=== PATIENT | female | born 1930 | race Caucasian/White ===

== ENCOUNTER 2018-02-13 22:17 | Emergency (ER) | payer MEDICARE, OTHER ==
[~2018-02-13] VITALS: Ht 152.4 cm; Wt 54.4 kg
[~2018-02-13 22:17] MED LIST: ACET650T10 PO; LORA0.5T PO; Levothyroxine Sodium PO; MAG355OR18 PO; MAGN400O6 PO; MEMA10TA PO; MIRT15TA PO; MIRT15TA7 PO; QUET25TA PO; SIMV10TA6 PO; VALP250C PO
[2018-02-13] MEDS ORDERED: LEVO50TA8 PO (22:37)
[2018-02-13] MEDS ORDERED: DIVA-76 PO (22:37)
[2018-02-13] MEDS ORDERED: TYLENOL-CODEINE PO (22:37)
[2018-02-13 23:11] LABS: BASOPHILS % (AUTO) 0.4 % (0.0-2.0); EOSINOPHILS % (AUTO) 0.3 % (0.0-7.0); HEMATOCRIT 37.9 % (31.2-41.9); HEMOGLOBIN 12.9 g/dL (10.9-14.3); LYMPHOCYTES # (AUTO) 1.5 K/uL (20.0-40.0); LYMPHOCYTES % (AUTO) 16.1 % (20.5-51.5); MEAN CORPUSCULAR HEMOGLOBIN 30.5 uug (24.7-32.8); MEAN CORPUSCULAR HGB CONC 34 g/dL (32.3-35.6); MEAN CORPUSCULAR VOLUME 89.3 fL (75.5-95.3); MONOCYTES # (AUTO) 0.8 K/uL (2.0-10.0); MONOCYTES % (AUTO) 8.3 % (0.0-11.0); NEUTROPHILS # (AUTO) 7.1 K/uL (1.8-8.9); NEUTROPHILS % (AUTO) 74.9 % (38.5-71.5); PLATELET COUNT (AUTO) 176 K/uL (179-408); RED BLOOD CELL COUNT(AUTO) 4.24 MIL/uL (3.63-4.92); WHITE BLOOD COUNT (AUTO) 9.4 K/uL (3.8-11.8)
[2018-02-13 23:16] LABS: CARBON DIOXIDE 30 mmol/L (21-32); CHLORIDE 104 mmol/L (98-107); CREATININE 1.1 mg/dL (0.6-1.3); GLUCOSE 132 mg/dL (74-106); POTASSIUM 3.2 mmol/L (3.5-5.1); UREA NITROGEN, BLOOD 13 mg/dL (7-18)
[2018-02-13] MEDS ORDERED: POTASSIUM CHLORIDE 10 MEQ TAB.PRT.SR ONE (23:48)
[2018-02-13] MEDS: POTASSIUM CHLORIDE 10 MEQ TAB.PRT.SR PO ONE (23:53)
[2018-02-14] MEDS ORDERED: POTASSIUM CHLORIDE 10 MEQ TAB.PRT.SR ONE (00:08)
[2018-02-14 01:28] VITALS: BP 113/63
== END 2018-02-14 01:20 | disposition home or self-care (01) ==
LOC: ER 22:19
DX: M25.512 Pain in left shoulder (principal); E87.6 Hypokalemia; D69.6 Thrombocytopenia, unspecified; E03.9 Hypothyroidism, unspecified; E78.5 Hyperlipidemia, unspecified; I63.8 Other cerebral infarction; F03.90 Unspecified dementia, unspecified severity, without behavioral disturbance, psychotic disturbance, mood disturbance, and anxiety; W19.XXXA Unspecified fall, initial encounter; Y93.89 Activity, other specified; Y92.89 Other specified places as the place of occurrence of the external cause; Y99.8 Other external cause status; Z79.899 Other long term (current) drug therapy
CPT/HCPCS: 36415; 70450; 72125; 73030; 83735; 85025; 85730; A4663

== ENCOUNTER 2018-12-04 21:38 | Inpatient (IN) | payer MEDICARE, MEDICAID ==
[~2018-12-04] VITALS: Ht 152.4 cm; Wt 49.0 kg
[~2018-12-04 21:38] MED LIST changes: -ACET650T10 PO; +DIVA-76 PO; +LEVO50TA8 PO; -Levothyroxine Sodium PO; -MIRT15TA7 PO; +TYLENOL-CODEINE PO; -VALP250C PO
--- NOTE | 2018-12-04 22:35 | NUR ---
pt alert. disoriented but mentation normal for pt. swelling, redness and abrasion noted r side of forehead. pt denies pain now/ labs sent including urine sample. forehead abrasion cleaned
[2018-12-04 22:44] LABS: BASOPHILS # (AUTO) 0.1 K/uL (0.0-8.0); BASOPHILS % (AUTO) 0.9 % (0.0-2.0); EOSINOPHILS # (AUTO) 0.1 K/uL (0.0-0.7); EOSINOPHILS % (AUTO) 1.8 % (0.0-7.0); HEMATOCRIT 42.2 % (31.2-41.9); HEMOGLOBIN 14.3 g/dL (10.9-14.3); LYMPHOCYTES # (AUTO) 1.7 K/uL (20.0-40.0); LYMPHOCYTES % (AUTO) 23.3 % (20.5-51.5); MEAN CORPUSCULAR HEMOGLOBIN 30.4 uug (24.7-32.8); MEAN CORPUSCULAR HGB CONC 34 g/dL (32.3-35.6); MEAN CORPUSCULAR VOLUME 89.4 fL (75.5-95.3); MONOCYTES # (AUTO) 0.5 K/uL (2.0-10.0); NEUTROPHILS # (AUTO) 4.9 K/uL (1.8-8.9); PLATELET COUNT (AUTO) 228 K/uL (179-408); RED BLOOD CELL COUNT(AUTO) 4.72 MIL/uL (3.63-4.92); WHITE BLOOD COUNT (AUTO) 7.3 K/uL (3.8-11.8)
[2018-12-04 22:47] LABS: *BILIRUBIN,URIN NEGATIVE (NEGATIVE); *CLARITY,URINE CLEAR (CLEAR); *COLOR,URINE LIGHT YELLOW (YELLOW); *KETONES,URINE NEGATIVE (NEGATIVE); *UROBILINOGEN,URINE 0.2 E.U./dl (NORMAL); LEUKOCYTE ESTERASE ,URINE TRACE (NEGATIVE); NITRITE, URINE NEGATIVE (NEGATIVE); PH,URINE 7.5 (5.0-8.0); UGLUCOSE NEGATIVE (NEGATIVE)
[2018-12-04 22:54] LABS: *BLOOD, URINE TRACE (NEGATIVE)
[2018-12-04 22:59] LABS: ALANINE AMINOTRANSFERASE 11 U/L (14-59); ALKALINE PHOSPHATASE 78 U/L (50-136); ASPARTATE AMINOTRANSFERASE 12 U/L (15-37); BILIRUBIN,DIRECT 0.2 mg/dL (0.0-0.2); BILIRUBIN,TOTAL 0.3 mg/dL (0.2-1.0); CARBON DIOXIDE 30 mmol/L (21-32); CHLORIDE 102 mmol/L (98-107); CREATININE 0.9 mg/dL (0.6-1.3); GLUCOSE 127 mg/dL (74-106); POTASSIUM 3.7 mmol/L (3.5-5.1); TOTAL PROTEIN, SERUM 8.8 g/dL (6.4-8.2); UREA NITROGEN, BLOOD 9 mg/dL (7-18)
[2018-12-04 23:00] LABS: *AMPHETAMINE, URINE NEGATIVE (NEGATIVE); *BARBITURATE, URINE NEGATIVE (NEGATIVE); *CANNABINOID, URINE NEGATIVE (NEGATIVE); *COCCAINE, URINE NEGATIVE (NEGATIVE); *OPIATE, URINE NEGATIVE (NEGATIVE); *PHENCYCLIDINE SCREEN,URINE NEGATIVE (NEGATIVE); BACTERIA,URINE NONE SEEN /HPF (NONE SEEN); RBC,URINE 0-3 /HPF (0-3); SQUAMOUS EPITHELIAL CELL,UR FEW /HPF (NONE SEEN)
[2018-12-04 23:02] LABS: ETHANOL < 3 MG/DL (0-0)
[2018-12-04 23:10] LABS: THYROID STIMULATING HORMONE 2.745 mIU/mL (0.358-3.740)
[2018-12-04 23:13] LABS: ACETAMINOPHEN < 2.0 ug/mL (10-30)
[2018-12-04] MEDS ORDERED: CEFTRIAXONE 1 G in IV DEXTROSE 5% 50 ML IV ONE (23:15)
[2018-12-04] MEDS ORDERED: IV NORMAL SALINE 1000 ML BAG IV ONE (23:15)
[2018-12-04] MEDS ORDERED: AZITHROMYCIN IV 500 MG in IV DEXTROSE 5% 250 ML IV ONE (23:15)
[2018-12-04] MEDS ORDERED: AZITHROMYCIN 500 MG VIAL IV ONE (23:46)
[2018-12-04] MEDS ORDERED: CEFTRIAXONE 1 G VIAL ONE (23:46)
--- NOTE | 2018-12-04 23:54 | NUR ---
Dr. Mayo speaking with Dr. Lavern Peterson of [facility].
--- NOTE | 2018-12-05 01:16 | NUR ---
pt input 2200 iv and output 1500
--- NOTE | 2018-12-05 02:00 | NUR ---
PATIENT WAS BROUGHT IN FROM ED, ALERT, ORIENTED TO PERSON AND PACE ONLY, CONFUSED, AGITATED, NOTED PERSEVERANCES AND POOR SHORT TERM MEMORY. PATIENT IS NOT COOPERATIVE AND LEAVES THE BED WITHOUT ASSISTANCE. DR DALI ANGELES WAS NOTIFIED, ORDERED 1MG ATIVAN PUSH ONCE. MEDICATION GIVEN, PATIENT FELL ASLEEP 20 MIN LATER. BED IN LOW POSITION, CALL LIGHT IS WITHIN REACH. PATIENT IS NOT IN DISTRESS.
[2018-12-05] MEDS ORDERED: LORAZEPAM 2 MG/1 ML VIAL IV PRN (03:30)
[2018-12-05] MEDS ORDERED: MAGNESIUM HYDROXIDE 30 ML LIQUID UDC PO PRN (03:30)
[2018-12-05] MEDS ORDERED: MAG HYDROX/AL HYDROX/SIMETH 30 ML LIQUID UDC PO PRN (03:30)
[2018-12-05 04:25] VITALS: BP 113/68
--- NOTE | 2018-12-05 06:23 | NUR ---
PATIENT IS SLEEPING, NO RESPIRATORY DISTRESS, NO SOB, NO COUGH, SATURATION IS ABOVE 96% ON ROOM AIR. PATIENT HAS NO S&S OF PAIN. COMFORT AND SAFETY PROVIDED.
[2018-12-05 06:31] LABS: BASOPHILS % (AUTO) 0.6 % (0.0-2.0); EOSINOPHILS # (AUTO) 0.1 K/uL (0.0-0.7); EOSINOPHILS % (AUTO) 1.7 % (0.0-7.0); HEMATOCRIT 37.8 % (31.2-41.9); HEMOGLOBIN 12.7 g/dL (10.9-14.3); LYMPHOCYTES # (AUTO) 1.6 K/uL (20.0-40.0); LYMPHOCYTES % (AUTO) 27.5 % (20.5-51.5); MEAN CORPUSCULAR HGB CONC 34 g/dL (32.3-35.6); MEAN CORPUSCULAR VOLUME 89.7 fL (75.5-95.3); MONOCYTES # (AUTO) 0.6 K/uL (2.0-10.0); MONOCYTES % (AUTO) 10.5 % (0.0-11.0); NEUTROPHILS # (AUTO) 3.4 K/uL (1.8-8.9); NEUTROPHILS % (AUTO) 59.7 % (38.5-71.5); PLATELET COUNT (AUTO) 221 K/uL (179-408); RED BLOOD CELL COUNT(AUTO) 4.22 MIL/uL (3.63-4.92); WHITE BLOOD COUNT (AUTO) 5.7 K/uL (3.8-11.8)
[2018-12-05 06:40] LABS: CARBON DIOXIDE 29 mmol/L (21-32); CHLORIDE 110 mmol/L (98-107); CREATININE 0.7 mg/dL (0.6-1.3); GLUCOSE 80 mg/dL (74-106); POTASSIUM 3.7 mmol/L (3.5-5.1); UREA NITROGEN, BLOOD 6 mg/dL (7-18)
--- NOTE | 2018-12-05 07:49 | NUR ---
PATIENT WITH 1:1 SITTER. PATIENT IS SLEEPING, NO S/S OF ACUTE DISTRESS NOTED AT THIS TIME , NO SOB NOTED AND NO S/S OF PAIN AT THIS TIME. PATIENT IN ROOM AIR. PROVIDE COMFORT AND SAFETY . WILL CONTINUE PLAN OF CARE.
[2018-12-05] MEDS: QUETIAPINE FUMARATE 25 MG TABLET PO SCH ×2 (08:11→12:27)
[2018-12-05] MEDS: LEVOTHYROXINE SODIUM 50 MCG TABLET PO SCH (08:11)
[2018-12-05] MEDS: DIVALPROEX 250 MG TABLET.DR PO SCH ×2 (08:12→13:16)
[2018-12-05] MEDS: MEMANTINE HCL 5 MG TABLET PO SCH ×2 (08:12→17:19)
[2018-12-05] MEDS ORDERED: DIVALPROEX 250 MG TABLET.DR PO SCH (09:00)
[2018-12-05] MEDS ORDERED: MEMANTINE HCL 10 MG TABLET PO SCH (09:00)
[2018-12-05] MEDS ORDERED: LEVOTHYROXINE SODIUM 50 MCG TABLET PO SCH (09:00)
[2018-12-05] MEDS ORDERED: QUETIAPINE FUMARATE 25 MG TABLET PO SCH (09:00)
[2018-12-05] MEDS: Z GUARD REMEDY PASTE 57 GM TUBE TOP SCH ×2 (09:19→20:54)
--- NOTE | 2018-12-05 09:40 | NUR ---
PATIENT SEEN AND EVALUATED BY PHYSICAL THERAPIST AND WALK WITH PATIENT WITH WALKER WITH NO COMPLICATIONS AND ABLE TO FOLLOW DIRECTIONS
[2018-12-05 11:00] VITALS: BP 104/53
[2018-12-05] MEDS: IV NS 1000 ML 1,000 ML IV PRN (14:25)
[2018-12-05 16:00] VITALS: BP 113/52
[2018-12-05] MEDS ORDERED: SIMVASTATIN 10 MG TABLET PO SCH (18:00)
--- NOTE | 2018-12-05 18:15 | NUR ---
PATIENT LAYING IN BED IN SITTING WATCHING TV, CONTINUE 1:1 FOR SAFETY. PATIENT ATE DINNER 30%, PATIENT ASK FOR PUDDING , CRACKERS AND JUICE AND CONSUMED IT. NO C/O PAIN , NO SOB NOTED, WILL CONTINUE PLAN OF CARE WITH TRAFFIC WORKER.
--- NOTE | 2018-12-05 19:00 | NUR ---
PATIENT ASLEEP BUT EASILY AROUSABLE, NO SOB NO CHEST PAIN, CONT ON 1;1 SITTER FOR SAFETY, PATIENT TRIES TO CLIMB OUT OF BED, RISK FOR FALL AND INJURY. NO COMPLAIN OF PAIN AT THIS TIME. CONT TO MONITOR.
[2018-12-05 19:18] VITALS: BP 120/55
[2018-12-05] MEDS: SIMVASTATIN 10 MG TABLET PO SCH (20:47)
[2018-12-05] MEDS: MIRTAZAPINE 15 MG TABLET PO SCH (20:47)
[2018-12-05] MEDS ORDERED: MIRTAZAPINE 15 MG TABLET PO SCH (21:00)
[2018-12-06 04:43] VITALS: BP 158/76
[2018-12-06] MEDS: LEVOTHYROXINE SODIUM 50 MCG TABLET PO SCH (06:30)
[2018-12-06] MEDS: IV NS 1000 ML 1,000 ML IV PRN ×2 (06:35→20:33)
--- NOTE | 2018-12-06 06:54 | NUR ---
PATIENT AWAKE , NO SOB NO CHEST PAIN NOTED. R HEAD BRUISES FADING AT THIS TIME. PATIENT HAS SLIGHT ELEVATED BP BUT ASYMPTOMATIC, WILL NOTIFY MD FOR ELEVATED BP. CONT ON 1;1 SITTER FOR SAFETY. RISK FOR FALL AND INJURY. CONT TO MONITOR.
[2018-12-06 07:03] VITALS: BP 143/61
--- NOTE | 2018-12-06 08:15 | NUR ---
PATIENT IS AWAKE ALERT AND ORIENTED DENIES PAIN OR DISCOMFORTS AT THIS TIME REMAIN ON IVF ORDERED WITH NO S/S OF INFILTERATION ON SITE CALL LIGHTS AND PERSONAL BELONGINGS PLACED WITHIN EASY REACH MADE COMFORTABLE AND WILL CONTINUE TO OBSERVE PATIENT.
[2018-12-06] MEDS: MEMANTINE HCL 5 MG TABLET PO SCH ×2 (08:29→16:19)
[2018-12-06] MEDS: QUETIAPINE FUMARATE 25 MG TABLET PO SCH ×2 (08:29→11:50)
[2018-12-06] MEDS: DIVALPROEX 250 MG TABLET.DR PO SCH ×2 (08:29→12:14)
[2018-12-06] MEDS: Z GUARD REMEDY PASTE 57 GM TUBE TOP SCH ×2 (08:33→21:00)
[2018-12-06] MEDS ORDERED: LEVOFLOXACIN 500 MG TABLET PO SCH (10:30)
--- NOTE | 2018-12-06 10:50 | NUR ---
DR ARRIOLA HERE INFORMED HIM OF POOR VEIN ACCESS AND MULTIPLE ATTEMPTS STATED OKAY TO PUT A MIDLINE AT THIS TIME EATING DISORDER SPECIALIST NOTIFIED.
[2018-12-06 11:00] VITALS: BP 123/60
--- NOTE | 2018-12-06 12:00 | NUR ---
MID LINE INSERTED RIGHT UPPER ARM WITH GAUGE 18 BY THE MID LINE RN PATIENT TOLERATED WELL.
--- NOTE | 2018-12-06 13:15 | NUR ---
DR BERMAN HERE TO SEE PATIENT WITH NO NEW ORDERS AT THIS TIME.PATIENTS JAMSHID MONGE AT THE BEDSIDE.
[2018-12-06 16:00] VITALS: BP 118/63
--- NOTE | 2018-12-06 16:37 | NUR ---
RESTING COMPLIANT WITH MEDICATIONS ALERT TO SELF WITH CONFUSSION APPETITE HAS BEEN FAIR NO S/S OF PAIN OR DISCOMFORTS AT THIS TIME MADE COMFORTABLE CONTINUES TO PROVIDE SAFE AND THERAPEUTIC ENVIRONMENT AT ALL TIMES.
--- NOTE | 2018-12-06 18:32 | NUR ---
NOTED EPISODES OF MORE CONFUSSION NEEDED FREQUENT REDIRECTION ASSISTED ONTO THE COMMODE VOIDED AND BACK TO BED MADE COMFORTABLE REMAIN ON ONE ON ONE SITTER FOR OBSERVATION.WILL CONTINUE TO OBSERVE.
[2018-12-06 19:27] VITALS: BP 121/64
--- NOTE | 2018-12-06 19:30 | NUR ---
RECEIVED PATIENT AWAKE AND ALERT IN BED WITH 1:1 SITTER. NO SIGNS OF ACUTE DISTRESS NOTED. NO COMPLAINTS OF PAIN OR SOB. IVF RUNNING IN THE MIDLINE ON THE [place]. COMMODE IS AT BEDSIDE. SAFETY MEASURES INITIATED. BED IS LOW AND LOCKED, CALL LIGHT IS WITHIN REACH. WILL CONTINUE TO MONITOR
[2018-12-06] MEDS: SIMVASTATIN 10 MG TABLET PO SCH (20:57)
[2018-12-06] MEDS: MIRTAZAPINE 15 MG TABLET PO SCH (20:57)
[2018-12-07 05:09] VITALS: BP 146/50
--- NOTE | 2018-12-07 06:02 | NUR ---
Patient slept well throughout shift. No attempts of trying to get out of bed, was able to ambulate with assist to commode. No signs of acute distress noted. No complaints of pain or SOB. Safety measures given.
[2018-12-07 06:06] LABS: BASOPHILS % (AUTO) 0.6 % (0.0-2.0); EOSINOPHILS # (AUTO) 0.1 K/uL (0.0-0.7); EOSINOPHILS % (AUTO) 1.7 % (0.0-7.0); HEMATOCRIT 33.8 % (31.2-41.9); HEMOGLOBIN 11.3 g/dL (10.9-14.3); LYMPHOCYTES # (AUTO) 1.6 K/uL (20.0-40.0); LYMPHOCYTES % (AUTO) 21.2 % (20.5-51.5); MEAN CORPUSCULAR HEMOGLOBIN 29.9 uug (24.7-32.8); MEAN CORPUSCULAR HGB CONC 34 g/dL (32.3-35.6); MEAN CORPUSCULAR VOLUME 89.3 fL (75.5-95.3); MONOCYTES # (AUTO) 0.7 K/uL (2.0-10.0); MONOCYTES % (AUTO) 9.8 % (0.0-11.0); NEUTROPHILS % (AUTO) 66.7 % (38.5-71.5); PLATELET COUNT (AUTO) 176 K/uL (179-408); RED BLOOD CELL COUNT(AUTO) 3.78 MIL/uL (3.63-4.92); WHITE BLOOD COUNT (AUTO) 7.5 K/uL (3.8-11.8)
[2018-12-07] MEDS: LEVOTHYROXINE SODIUM 50 MCG TABLET PO SCH (06:12)
[2018-12-07 06:21] LABS: CARBON DIOXIDE 30 mmol/L (21-32); CHLORIDE 111 mmol/L (98-107); CREATININE 0.8 mg/dL (0.6-1.3); GLUCOSE 87 mg/dL (74-106); PHOSPHOROUS 3.2 mg/dL (2.5-4.9); POTASSIUM 3.7 mmol/L (3.5-5.1); UREA NITROGEN, BLOOD 6 mg/dL (7-18)
--- NOTE | 2018-12-07 07:20 | NUR ---
AWAKE ALERT COMFORTABLE AT THIS TIME VERBALLY RESPONDED WHEN SPOKEN TO BUT IS FORGETFUL REORIENTATION IS ONGOING CONTINUES TO HAVE ONE ON ONE SITTER FOR SAFETY CALL LIGHTS AND PERSONAL BELONGINGS ARE ALL WITHIN EASY REACH MADE COMFORTABLE AND WILL CONTINUE TO OBSERVE AND PROVIDE SAFE AND THERAPEUTIC ENVIRONMENT AT ALL TIMES.
[2018-12-07] MEDS: DIVALPROEX 250 MG TABLET.DR PO SCH ×2 (08:23→12:08)
[2018-12-07] MEDS: QUETIAPINE FUMARATE 25 MG TABLET PO SCH ×2 (08:24→12:09)
[2018-12-07] MEDS: Z GUARD REMEDY PASTE 57 GM TUBE TOP SCH ×2 (08:24→20:28)
[2018-12-07] MEDS: MEMANTINE HCL 5 MG TABLET PO SCH ×2 (08:24→16:24)
[2018-12-07] MEDS: IV NS 1000 ML 1,000 ML IV PRN ×2 (09:29→21:00)
[2018-12-07] MEDS: LEVOFLOXACIN 250 MG TABLET PO SCH (09:32)
--- NOTE | 2018-12-07 10:46 | NUR ---
ASSISTED WITH THE COAL TRAM DRIVER ONTO THE BEDSIDE COMMODE BM NOTED AND DTB MADE COMFORTABLE NOT IN DISTRESS AT THIS TIME.
[2018-12-07 11:00] VITALS: BP 135/67
--- NOTE | 2018-12-07 13:00 | NUR ---
PATIENT SEEN BY DR ARRIOLA WITH NO NEW ORDERS AT THIS TIME.
--- NOTE | 2018-12-07 14:00 | NUR ---
SEEN BY THE PHYSICAL THERAPIST FOR AMBULATION WITH THE FRONT WHEEL WALKER WITH FAIR ENDURANCE AT THIS TIME.
[2018-12-07 16:00] VITALS: BP 132/67
--- NOTE | 2018-12-07 18:00 | NUR ---
SUN DOWNING MORE CONFUSED NEEDING FREQUENT REDIRECTION REMAIN WITH ONE ON ONE SITTER ORDERED SAFE ENVIRONMENT PROVIDED AT ALL TIMES.
--- NOTE | 2018-12-07 19:30 | NUR ---
PATIENT AWAKE, NO SOB NO CHEST PAIN NOTED, CONT ABX FOR PNA. PATIENT HAS NO COUGH, NO CONGESTION NOTED. R HEAD DISCOLORATION FADING AWAY. PATIENT TRIES TO GET UP WITHOUT ASKING FOR ASSISTANCE, RISK FOR FALL, CONT ON 1;1 SITTER FOR SAFETY. CONT TO MONITOR.
[2018-12-07 19:56] VITALS: BP 126/72
[2018-12-07] MEDS: SIMVASTATIN 10 MG TABLET PO SCH (20:27)
[2018-12-07] MEDS: MIRTAZAPINE 15 MG TABLET PO SCH (20:27)
[2018-12-08 05:09] VITALS: BP 137/69
[2018-12-08] MEDS: LEVOTHYROXINE SODIUM 50 MCG TABLET PO SCH (06:02)
--- NOTE | 2018-12-08 06:26 | NUR ---
PATIENT SLEPT APPROX 8 HRS, NO SOB NO CHEST PAIN, NO COUGHING NOTED. R UPPER ARM MIDLINE PATENT. ASSISTED WITH TOILETING, RISK FOR FALL DUE TO FORGETFULNESS IN ASKING FOR ASSISTANTCE. CONT ON 1;1 SITTER FOR SAFETY.
--- NOTE | 2018-12-08 07:37 | NUR ---
PATIENT RECEIVED AWAKE ALERT AND COOPERATIVE WITH ONE ON ONE SITTER FOR SAFETY REMAIN ON IVF ORDERED WITH NO S/S OF INFILTERATION WITH MID LINE INTACT TO HER RIGHT ARM.SAFE AND THERAPEUTIC ENVIRONMENT PROVIDED AT ALL TIMES AND WILL CONTINUE TO OBSERVE.
[2018-12-08 07:45] VITALS: BP 143/55
[2018-12-08] MEDS ORDERED: LEVO500T2 PO (08:07)
[2018-12-08] MEDS: MEMANTINE HCL 5 MG TABLET PO SCH (08:27)
[2018-12-08] MEDS: QUETIAPINE FUMARATE 25 MG TABLET PO SCH ×2 (08:27→11:10)
[2018-12-08] MEDS: DIVALPROEX 250 MG TABLET.DR PO SCH ×2 (08:27→12:13)
[2018-12-08] MEDS: Z GUARD REMEDY PASTE 57 GM TUBE TOP SCH (08:29)
--- NOTE | 2018-12-08 09:09 | NUR ---
DR CRONIN HERE TO SEE PATIENT WITH ORDERS TI DISCHARGE TO [facility] TODAY STATED WILL CONFIRM WITH THE PATIENTS SON FIRST.
[2018-12-08] MEDS: LEVOFLOXACIN 250 MG TABLET PO SCH (11:12)
[2018-12-08 11:33] VITALS: BP 132/51
--- NOTE | 2018-12-08 13:03 | NUR ---
PER THE PACKAGE DYE STAND LOADER TOOL ROOM GEAR MACHINE OPERATOR PATIENT WILL BE DISCHARGED TO [facility] PATIENT IS BEING PREPPED FOR DISCHARGE AT THIS TIME MID LINE REMOVED THE [facility] LOUVER DOOR ASSEMBLER WILL CALL TO PICK PATIENT UP BY THEIR PRIVATE CAR.
--- NOTE | 2018-12-08 15:00 | NUR ---
PATIENT DISCHARGED PICKED UP BY HER SON BY PRIVATE CAR IN SATISFACTORY CONDITION WITH DISCHARGE INSTRUCTIONS AND PATIENTS SON INSTRUCTED TO CALL FOR A FOLLOW UP APPOINTMENT WITH HER PRIMARY DOCTOR AND TO CONTINUE ON LEVAQUIN FOR [address] CRONIN DID NOT LEAVE A PRESCRIPTIONS BECAUSE ORIGINALLY PATIENT WAS SUPPOSED TO GO TO SNF AND DID NOT NEED A PRESCRIPTION.MARIPOSA PATIENTS SON WILL HAVE CEDARS CALL DR CRONIN TO CONFIRM THE ANTIBIOTICS BECAUSE HE DID NOT LEAVE A PRESCRIPTION FOR THE PATIENT AND HE EXPRESSED UNDERSTANDING.
== END 2018-12-08 15:00 | DRG 193 ==
LOC: ER 21:43 → MEDSURG3 12-05 00:29
PROVIDERS: ADMIT Internal Medicine Nephrology; ATTEND Internal Medicine Nephrology
DX: J15.9 Unspecified bacterial pneumonia (principal); G92 Toxic encephalopathy; F03.91 Unspecified dementia, unspecified severity, with behavioral disturbance; E87.0 Hyperosmolality and hypernatremia; Z90.710 Acquired absence of both cervix and uterus; Z79.890 Hormone replacement therapy; E03.9 Hypothyroidism, unspecified; Z91.018 Allergy to other foods; F39 Unspecified mood [affective] disorder; S00.83XA Contusion of other part of head, initial encounter; W19.XXXA Unspecified fall, initial encounter; Y92.098 Other place in other non-institutional residence as the place of occurrence of the external cause; Z79.899 Other long term (current) drug therapy; R53.81 Other malaise; I67.2 Cerebral atherosclerosis
CPT/HCPCS: 36415; 36569; 70030-TC; 70450; 71045; 72125; 80307; 83605; 83735; 84100; 84443; 85025; 85730; 87040; 87086; 93005; 97110; 97112; 97116; 97530; A4663; G0378; G0480; G0480-TC; J0456; J0696; J2060; J3490; J7030; J7060

== ENCOUNTER 2019-04-30 21:26 | Inpatient (IN) | payer MEDICARE, MEDICAID ==
[~2019-04-30] VITALS: Ht 167.6 cm; Wt 47.6 kg
[~2019-04-30 21:26] MED LIST changes: +LEVO500T2 PO; -LORA0.5T PO; -MAG355OR18 PO; -MAGN400O6 PO; -TYLENOL-CODEINE PO
[2019-04-30] MEDS ORDERED: LORA0.5T PO (21:35)
[2019-04-30] MEDS ORDERED: ACET1TAB23 PO (21:35)
[2019-04-30] MEDS ORDERED: QUET25TA PO (21:35)
[2019-04-30] MEDS ORDERED: MAG355OR18 PO (21:35)
[2019-04-30] MEDS ORDERED: MAGN400O6 PO (21:35)
--- NOTE | 2019-04-30 21:54 | NUR ---
patient down in CT
--- NOTE | 2019-04-30 22:10 | NUR ---
patient returned from ct
[2019-04-30 22:30] LABS: CARBON DIOXIDE 31 mmol/L (21-32); CHLORIDE 108 mmol/L (98-107); CREATININE 0.9 mg/dL (0.6-1.3); GLUCOSE 87 mg/dL (74-106); POTASSIUM 3.4 mmol/L (3.5-5.1); UREA NITROGEN, BLOOD 14 mg/dL (7-18)
[2019-04-30 22:33] LABS: BASOPHILS % (AUTO) 0.7 % (0.0-2.0); EOSINOPHILS # (AUTO) 0.1 K/uL (0.0-0.7); HEMOGLOBIN 12.4 g/dL (10.9-14.3); LYMPHOCYTES # (AUTO) 2.1 K/uL (20.0-40.0); LYMPHOCYTES % (AUTO) 37.7 % (20.5-51.5); MEAN CORPUSCULAR HEMOGLOBIN 30.8 uug (24.7-32.8); MEAN CORPUSCULAR HGB CONC 35 g/dL (32.3-35.6); MEAN CORPUSCULAR VOLUME 89.2 fL (75.5-95.3); MONOCYTES # (AUTO) 0.6 K/uL (2.0-10.0); MONOCYTES % (AUTO) 9.7 % (0.0-11.0); NEUTROPHILS # (AUTO) 2.8 K/uL (1.8-8.9); NEUTROPHILS % (AUTO) 49.9 % (38.5-71.5); PLATELET COUNT (AUTO) 170 K/uL (179-408); RED BLOOD CELL COUNT(AUTO) 4.04 MIL/uL (3.63-4.92); WHITE BLOOD COUNT (AUTO) 5.7 K/uL (3.8-11.8)
[2019-04-30 22:36] LABS: ALANINE AMINOTRANSFERASE 10 U/L (14-59); ALKALINE PHOSPHATASE 54 U/L (50-136); ASPARTATE AMINOTRANSFERASE 14 U/L (15-37); BILIRUBIN,DIRECT 0.1 mg/dL (0.0-0.2); BILIRUBIN,TOTAL 0.3 mg/dL (0.2-1.0)
--- NOTE | 2019-04-30 23:02 | NUR ---
called for telel bed, patient will be in room 310.
--- NOTE | 2019-04-30 23:20 | NUR ---
called [facility] for panel call
[2019-05-01] VITALS (7 sets, daily range): BP systolic 121–155; BP diastolic 48–64
[2019-05-01] MEDS ORDERED: ACETAMINOPHEN 325 MG TABLET PO PRN (00:30)
[2019-05-01] MEDS ORDERED: ONDANSETRON 4 MG/2 ML VIAL IV PRN (00:30)
--- NOTE | 2019-05-01 01:27 | NUR ---
patient transferred to tele floor via gurney by Philip FRENCH. SBAR report given to Eloisa
--- NOTE | 2019-05-01 01:45 | NUR ---
Received patient from ED via gurney accompanied by MANOLO Foster and son, Xander. Patient safely transferred to bed, not in acute distress. No complaints at the moment. Noted on room air and with IV access on the left AC, 20g to saline lock, patent and intact. Patient made comfortable in bed. Oriented to unit and use of call light to which patient verbalized understanding. Bed in low position, locked, side rails up x 2 for safety, call light within reach. Noise and light subdued. Will continue to monitor.
[2019-05-01] MEDS: ZOLPIDEM 5 MG TABLET PO PRN (03:10)
--- NOTE | 2019-05-01 06:15 | NUR ---
Patient slept well after ambien dose given. Patient alert and oriented x 2, forgetful, requires frequent reorientation. Patient able to ambulate to restroom with assist or with four wheel walker. Attended all needs. Ensured safety and comfort.
--- NOTE | 2019-05-01 08:00 | NUR ---
AWAKE ALERT AND VERBALLY RESPONSIVE, FORGETFUL AND NEEDS CONSTANT REDIRECTION DURING ADLS. NOTED FREQUENT URINATION UA/CS SENT. DENIES CHEST PAIN OR SOB, SR ON MONITOR.
[2019-05-01 09:18] LABS: *BILIRUBIN,URIN NEGATIVE (NEGATIVE); *BLOOD, URINE NEGATIVE (NEGATIVE); *CLARITY,URINE CLEAR (CLEAR); *COLOR,URINE YELLOW (YELLOW); *KETONES,URINE NEGATIVE (NEGATIVE); LEUKOCYTE ESTERASE ,URINE NEGATIVE (NEGATIVE); NITRITE, URINE NEGATIVE (NEGATIVE); PH,URINE 8.5 (5.0-8.0); UGLUCOSE NEGATIVE (NEGATIVE)
[2019-05-01 12:28] LABS: BASOPHILS # (AUTO) 0.1 K/uL (0.0-8.0); BASOPHILS % (AUTO) 1.1 % (0.0-2.0); EOSINOPHILS # (AUTO) 0.1 K/uL (0.0-0.7); EOSINOPHILS % (AUTO) 2.6 % (0.0-7.0); HEMATOCRIT 38.3 % (31.2-41.9); LYMPHOCYTES # (AUTO) 1.5 K/uL (20.0-40.0); LYMPHOCYTES % (AUTO) 30.7 % (20.5-51.5); MEAN CORPUSCULAR HEMOGLOBIN 30.8 uug (24.7-32.8); MEAN CORPUSCULAR HGB CONC 34 g/dL (32.3-35.6); MEAN CORPUSCULAR VOLUME 90.5 fL (75.5-95.3); MONOCYTES # (AUTO) 0.4 K/uL (2.0-10.0); NEUTROPHILS # (AUTO) 2.7 K/uL (1.8-8.9); NEUTROPHILS % (AUTO) 56.6 % (38.5-71.5); PLATELET COUNT (AUTO) 173 K/uL (179-408); RED BLOOD CELL COUNT(AUTO) 4.24 MIL/uL (3.63-4.92); WHITE BLOOD COUNT (AUTO) 4.8 K/uL (3.8-11.8)
--- NOTE | 2019-05-01 12:30 | NUR ---
SEEN BY CLARK NOTED LABS AND REVIEWED HOME MEDS. SEE NOTES
[2019-05-01 12:41] LABS: CARBON DIOXIDE 32 mmol/L (21-32); CHLORIDE 109 mmol/L (98-107); CREATININE 0.8 mg/dL (0.6-1.3); GLUCOSE 99 mg/dL (74-106); MAGNESIUM 2.4 mg/dL (1.8-2.4); PHOSPHOROUS 3.2 mg/dL (2.5-4.9); POTASSIUM 3.7 mmol/L (3.5-5.1); UREA NITROGEN, BLOOD 8 mg/dL (7-18)
[2019-05-01] MEDS: IV NS 1000 ML 1,000 ML IV PRN (13:28)
--- NOTE | 2019-05-01 15:00 | NUR ---
SEEN BY PHYSICAL THERAPY FOR EVAL, SEE NOTES.
[2019-05-01] MEDS: MEMANTINE HCL 5 MG TABLET PO SCH (16:47)
[2019-05-01] MEDS: DIVALPROEX 250 MG TABLET.DR PO SCH (16:47)
[2019-05-01] MEDS: QUETIAPINE FUMARATE 25 MG TABLET PO SCH (16:48)
[2019-05-01] MEDS ORDERED: MEMANTINE HCL 10 MG TABLET PO SCH (17:00)
--- NOTE | 2019-05-01 19:04 | NUR ---
PATIENT REMAINS WITH ON AND OFF CONFUSION AND GETTING OUT OF BED, HIGH RISK FOR FALL
--- NOTE | 2019-05-01 20:00 | NUR ---
received patient in bed, oriented to person and place. Pleasant in conversation, calm, cooperative with care. IV is intact and patent. Bed alarm is on for safety. Comfort and safety measures are in place. Normal sinus on heart monitor.
[2019-05-01] MEDS: MIRTAZAPINE 15 MG TABLET PO SCH (20:30)
[2019-05-01] MEDS: SIMVASTATIN 10 MG TABLET PO SCH (20:30)
[2019-05-02] MEDS: IV NS 1000 ML 1,000 ML IV PRN ×2 (02:13→15:50)
[2019-05-02] MEDS: ZOLPIDEM 5 MG TABLET PO PRN (02:18)
--- NOTE | 2019-05-02 02:20 | NUR ---
Patient is unable to stay asleep. Given Ambien. Remains fairly confused but cooperative with care. Does not make attempts to leave the bed. Bed alarm is on for safety.
--- NOTE | 2019-05-02 05:45 | NUR ---
patient slept well during the night, required Ambien to continue sleeping. Woke up in the morning, used a commode to urinate, 1 person assist. No issues or distress noted during the shift.
[2019-05-02 05:48] LABS: BASOPHILS % (AUTO) 0.9 % (0.0-2.0); EOSINOPHILS # (AUTO) 0.1 K/uL (0.0-0.7); EOSINOPHILS % (AUTO) 3.1 % (0.0-7.0); HEMATOCRIT 33.4 % (31.2-41.9); HEMOGLOBIN 11.4 g/dL (10.9-14.3); LYMPHOCYTES # (AUTO) 2.1 K/uL (20.0-40.0); LYMPHOCYTES % (AUTO) 45.5 % (20.5-51.5); MEAN CORPUSCULAR HEMOGLOBIN 30.6 uug (24.7-32.8); MEAN CORPUSCULAR HGB CONC 34 g/dL (32.3-35.6); MEAN CORPUSCULAR VOLUME 89.3 fL (75.5-95.3); MONOCYTES # (AUTO) 0.4 K/uL (2.0-10.0); MONOCYTES % (AUTO) 9.8 % (0.0-11.0); NEUTROPHILS # (AUTO) 1.9 K/uL (1.8-8.9); NEUTROPHILS % (AUTO) 40.7 % (38.5-71.5); PLATELET COUNT (AUTO) 95 K/uL (179-408); RED BLOOD CELL COUNT(AUTO) 3.74 MIL/uL (3.63-4.92); WHITE BLOOD COUNT (AUTO) 4.6 K/uL (3.8-11.8)
[2019-05-02 06:11] LABS: CARBON DIOXIDE 29 mmol/L (21-32); CHLORIDE 113 mmol/L (98-107); CHOLESTEROL 126 mg/dL (<200); CREATININE 0.7 mg/dL (0.6-1.3); GLUCOSE 75 mg/dL (74-106); HDL CHOLESTEROL 55 mg/dL (40-60); PHOSPHOROUS 3.4 mg/dL (2.5-4.9); POTASSIUM 3.3 mmol/L (3.5-5.1); TRIGLYCERIDES 49 MG/DL (30-150); UREA NITROGEN, BLOOD 4 mg/dL (7-18)
[2019-05-02 06:21] LABS: EOSINOPHILS % (MANUAL) 3 % (0-8); LYMPHOCYTES % (MANUAL) 50 % (20-40); MONOCYTES % (MANUAL) 5 % (2-10); NEUTROPHILS % (MANUAL) 42 % (42-75)
[2019-05-02] MEDS: LEVOTHYROXINE SODIUM 50 MCG TABLET PO SCH (06:27)
[2019-05-02] MEDS: MEMANTINE HCL 5 MG TABLET PO SCH ×2 (07:59→17:13)
[2019-05-02] MEDS: QUETIAPINE FUMARATE 25 MG TABLET PO SCH ×3 (07:59→17:13)
[2019-05-02] MEDS: DIVALPROEX 250 MG TABLET.DR PO SCH ×2 (07:59→17:13)
--- NOTE | 2019-05-02 08:00 | NUR ---
AWAKE ALERT AND ABLE TO FOLLOW COMMANDS IN SPITE OF FORGETFULNESS/CONFUSION. NEEDS ATTENDED AND CLOSELY MONITORED. FREQUENT ROUNDING DUE TO HIGH RISK FOR FALL.
[2019-05-02 11:05] VITALS: BP 117/54
--- NOTE | 2019-05-02 11:56 | NUR ---
SEEN BY INSIDE SALES ACCOUNT EXECUTIVE SPOKE WITH SON AND DISCUSSED DC PLANNING HOME/ARU. SEE NOTES
[2019-05-02] MEDS ORDERED: POTASSIUM CHLORIDE 20 MEQ TAB.PRT.SR PO ONE (12:30)
[2019-05-02 15:56] VITALS: BP 115/63
--- NOTE | 2019-05-02 19:30 | NUR ---
Received patient resting in bed. No signs of acute distress noted. Patient is alert, but confused and forgetful. IVF running on the right upper arm. Vitals WNL. Safety measures initiated. Bed is low and locked, call light within reach. Will continue to monitor.
[2019-05-02 19:55] VITALS: BP 127/57
[2019-05-02] MEDS: SIMVASTATIN 10 MG TABLET PO SCH (20:12)
[2019-05-02] MEDS: MIRTAZAPINE 15 MG TABLET PO SCH (20:12)
--- NOTE | 2019-05-02 23:34 | NUR ---
Report given to MANOLO Garcia for continuity of care.
[2019-05-03] MEDS: IV NS 1000 ML 1,000 ML IV PRN (05:32)
[2019-05-03] MEDS: LEVOTHYROXINE SODIUM 50 MCG TABLET PO SCH (06:39)
[2019-05-03 07:07] LABS: BASOPHILS # (AUTO) 0.1 K/uL (0.0-8.0); EOSINOPHILS # (AUTO) 0.2 K/uL (0.0-0.7); LYMPHOCYTES # (AUTO) 2.1 K/uL (20.0-40.0); LYMPHOCYTES % (AUTO) 37.5 % (20.5-51.5); MEAN CORPUSCULAR HEMOGLOBIN 30.5 uug (24.7-32.8); MEAN CORPUSCULAR HGB CONC 34 g/dL (32.3-35.6); MONOCYTES # (AUTO) 0.5 K/uL (2.0-10.0); MONOCYTES % (AUTO) 8.2 % (0.0-11.0); NEUTROPHILS # (AUTO) 2.8 K/uL (1.8-8.9); NEUTROPHILS % (AUTO) 50.3 % (38.5-71.5); RED BLOOD CELL COUNT(AUTO) 4.34 MIL/uL (3.63-4.92); WHITE BLOOD COUNT (AUTO) 5.6 K/uL (3.8-11.8)
[2019-05-03 07:10] LABS: HEMATOCRIT 39.5 % (31.2-41.9); HEMOGLOBIN 13.2 g/dL (10.9-14.3); PLATELET COUNT (AUTO) 142 K/uL (179-408)
[2019-05-03 07:14] LABS: CARBON DIOXIDE 27 mmol/L (21-32); CHLORIDE 114 mmol/L (98-107); CREATININE 0.6 mg/dL (0.6-1.3); GLUCOSE 72 mg/dL (74-106); MAGNESIUM 2.1 mg/dL (1.8-2.4); POTASSIUM 3.6 mmol/L (3.5-5.1); UREA NITROGEN, BLOOD 2 mg/dL (7-18)
--- NOTE | 2019-05-03 07:20 | NUR ---
RECEIVED PATIENT AWAKE AND IN BED. PATIENT ALERT AND ORIENTED X2. NO DISTRESS NOTED. BED IN LOWEST POSITION, SIDE RAILS UP X2, CALL LIGHT WITHIN REACH, AND BED ALARM ON. WILL CONTINUE TO MONITOR.
--- NOTE | 2019-05-03 07:25 | NUR ---
patient slept well last night. No signs of acute distress noted. Patient is alert, but confused and forgetful. IVF running on the right upper arm. Vitals WNL. Safety measures initiated. Bed is low and locked, call light within reach. Will continue to monitor.
[2019-05-03] MEDS: DIVALPROEX 250 MG TABLET.DR PO SCH ×2 (08:17→17:11)
[2019-05-03] MEDS: MEMANTINE HCL 5 MG TABLET PO SCH ×2 (08:17→17:11)
[2019-05-03] MEDS: QUETIAPINE FUMARATE 25 MG TABLET PO SCH ×3 (08:17→17:12)
[2019-05-03 08:18] VITALS: BP 152/65
--- NOTE | 2019-05-03 18:19 | NUR ---
Report given to ARU nurse. No distress noted. Reviewed D/C instructions with patient. Patient verbalizes understanding.
[2019-05-03] MEDS ORDERED: ZOLP5TAB8 PO (20:06)
== END 2019-05-03 18:50 | DRG 640 ==
LOC: ER 21:29 → TELE3 23:30
PROVIDERS: ADMIT Nurse Practitioner Acute Care; ATTEND Nurse Practitioner Acute Care
DX: E86.9 Volume depletion, unspecified (principal); G93.41 Metabolic encephalopathy; E44.1 Mild protein-calorie malnutrition; Z68.1 Body mass index [BMI] 19.9 or less, adult; I50.30 Unspecified diastolic (congestive) heart failure; E87.0 Hyperosmolality and hypernatremia; R55 Syncope and collapse; E03.9 Hypothyroidism, unspecified; E87.6 Hypokalemia; Z90.710 Acquired absence of both cervix and uterus; F03.90 Unspecified dementia, unspecified severity, without behavioral disturbance, psychotic disturbance, mood disturbance, and anxiety; I70.0 Atherosclerosis of aorta; M43.12 Spondylolisthesis, cervical region; M25.78 Osteophyte, vertebrae; M48.02 Spinal stenosis, cervical region; Z79.890 Hormone replacement therapy; S09.90XA Unspecified injury of head, initial encounter; Y92.091 Bathroom in other non-institutional residence as the place of occurrence of the external cause; W01.0XXA Fall on same level from slipping, tripping and stumbling without subsequent striking against object, initial encounter; Y93.01 Activity, walking, marching and hiking
CPT/HCPCS: 36415; 70030-TC; 70450; 71045; 72125; 83735; 84100; 84443; 85025; 85730; 87086; 93005; A4663; G0378; J3490; J7030

== ENCOUNTER 2019-05-03 19:06 | Inpatient (IN) | payer MEDICARE, MEDICAID ==
[~2019-05-03] VITALS: Ht 160 cm; Wt 47.6 kg
[~2019-05-03 19:06] MED LIST changes: +ACET1TAB23 PO; +LORA0.5T PO; +MAG355OR18 PO; +MAGN400O6 PO
[2019-05-03] MEDS ORDERED: ZOLP5TAB8 PO (20:06)
[2019-05-03] MEDS ORDERED: Z GUARD REMEDY PASTE 57 GM TUBE TOP PRN (20:15)
[2019-05-03 20:28] VITALS: BP 124/57
--- NOTE | 2019-05-04 04:07 | NUR ---
admitted from med-surg a 89 yr old female with an admitting diagnosis of hypernatremia/acute metabolic encepalopathy. AAOx1-2 with periods of confusion. Forgetful at times, but cooperative follow simple commands. VSS. No acute distress noted. Hx of depression, Hyperlipidemia,Dementia, Bladder Prolapse, Total Hysterectomy. Skin intact Denies any pain nor any discomfort. Dr Brown aware of patient's admission and was told to reconcile meds. He said ok. Patient able to ambulates with supervision to the BR, voiding well. Fall precaution maintained. Call ravi within reach. Bed alarm on. Siderails up for safety. Will monitor patient.
[2019-05-04 05:28] VITALS: BP 136/60
[2019-05-04 07:47] VITALS: BP 121/59
--- NOTE | 2019-05-04 10:00 | NUR ---
Patient awake, alert oriented x 1-2, confused, not in any form of distress, on room air. She denies any pain or discomfort at this time. Assisted with her needs promptly. Notified Dr. Merida regarding the need for medication reconciliation and MD said he will. Safety measures implemented. Call light and frequently used items placed within reach.
[2019-05-04] MEDS ORDERED: ACETAMINOPHEN/CODEINE 300-30 MG TABLET PO PRN (10:30)
[2019-05-04] MEDS ORDERED: MAG HYDROX/AL HYDROX/SIMETH 30 ML LIQUID UDC PO PRN (10:30)
[2019-05-04] MEDS ORDERED: MAGNESIUM HYDROXIDE 30 ML LIQUID UDC PO PRN (10:30)
[2019-05-04] MEDS ORDERED: LEVOFLOXACIN 500 MG TABLET PO PRN (10:30)
[2019-05-04] MEDS: QUETIAPINE FUMARATE 25 MG TABLET PO SCH ×2 (11:41→21:52)
[2019-05-04 16:12] VITALS: BP 116/77
[2019-05-04] MEDS: DIVALPROEX 250 MG TABLET.DR PO SCH (16:15)
[2019-05-04] MEDS: MEMANTINE HCL 5 MG TABLET PO SCH (16:16)
[2019-05-04] MEDS ORDERED: MEMANTINE HCL 10 MG TABLET PO SCH (17:00)
[2019-05-04 20:36] VITALS: BP 122/60
--- NOTE | 2019-05-04 21:00 | NUR ---
patient is sitting in the wheelchair and coloring the pictures. Sitter at bedside. Patient is confused, perseverations about number [phone], does not want to be in bed claiming: "it is not her bed". Cooperative with care and compliant with medication regimen, pleasant in conversation, mildly depressed. Given a full coloring book to occupy the time.
[2019-05-04] MEDS: MIRTAZAPINE 15 MG TABLET PO SCH (21:52)
[2019-05-04] MEDS: SIMVASTATIN 10 MG TABLET PO SCH (21:52)
--- NOTE | 2019-05-04 22:10 | NUR ---
patient continues to color the pictures, oriented to person only. Took her medicines. Will continue to monitor, sitter is at bedside.
--- NOTE | 2019-05-04 23:25 | NUR ---
Patient is drowsy, was put in bed, currently sleeping, sitter is at bedside.
[2019-05-05 05:00] VITALS: BP 138/52
--- NOTE | 2019-05-05 05:40 | NUR ---
Patient slept well during the shift, no acute distress noted.
[2019-05-05] MEDS: LEVOTHYROXINE SODIUM 50 MCG TABLET PO SCH (06:16)
--- NOTE | 2019-05-05 06:27 | NUR ---
patient woke up and asking to go to the bathroom. Ambulated safely with 2 person assist. Too AM med, continues to persevere about "appointment for her son at [phone]". Went back to bed.
--- NOTE | 2019-05-05 07:10 | NUR ---
Received patient in bed alert and oriented x 1-2. With 1:1 sitter at bedside. fall precaution continue with assist. No c/o pain at this time. No s/s acute distress noted. Call light and frequently used items within reach. Safety and comfort provide at all times. Will continue to monitor.
[2019-05-05 08:00] VITALS: BP 145/63
[2019-05-05] MEDS: QUETIAPINE FUMARATE 25 MG TABLET PO SCH ×3 (08:38→20:15)
[2019-05-05] MEDS: DIVALPROEX 250 MG TABLET.DR PO SCH ×2 (08:39→16:56)
[2019-05-05] MEDS: MEMANTINE HCL 5 MG TABLET PO SCH ×2 (08:39→16:56)
--- NOTE | 2019-05-05 18:29 | NUR ---
Patient in bed with HOB elevated and watching tv . Alert and oriented x 1-2. All due meds given as ordered and patient kept clean and dry at all times. No c/o pain at this time. No s/s acute distress noted. Call light and frequently used items within reach. Safety and comfort provide at all times. Will continue to monitor.
[2019-05-05] MEDS: LORAZEPAM 0.5 MG TABLET PO PRN (19:46)
--- NOTE | 2019-05-05 20:00 | NUR ---
patient is in bed, confused, agitated, wants to leave and go home, perseveres about "working at a [employer] for 7 years" and "going home to sleep in her bed at 7:30", oriented to person only, pleasant in conversation, denies pain. Attempted to redirect and preoccupy with snacks. Sitter is at bedside. Will give ativan.
[2019-05-05] MEDS: MIRTAZAPINE 15 MG TABLET PO SCH (20:15)
[2019-05-05] MEDS: SIMVASTATIN 10 MG TABLET PO SCH (20:15)
--- NOTE | 2019-05-05 20:30 | NUR ---
patient took Ativan and the rest of her meds. More calm now, drowsy, watching TV. Sitter at bedside.
[2019-05-05 20:35] VITALS: BP 140/68
--- NOTE | 2019-05-05 22:00 | NUR ---
Patient is asleep, no distress noted, breathing is regular. patient ate pudding and crackers, drank a soda.
[2019-05-06] MEDS: LEVOTHYROXINE SODIUM 50 MCG TABLET PO SCH (06:21)
[2019-05-06 06:34] VITALS: BP 126/60
[2019-05-06 07:44] VITALS: BP 126/61
[2019-05-06] MEDS: QUETIAPINE FUMARATE 25 MG TABLET PO SCH ×3 (08:47→20:43)
[2019-05-06] MEDS: MEMANTINE HCL 5 MG TABLET PO SCH ×2 (08:48→17:18)
[2019-05-06] MEDS: DIVALPROEX 250 MG TABLET.DR PO SCH ×2 (08:48→17:18)
[2019-05-06] MEDS: LORAZEPAM 0.5 MG TABLET PO PRN ×2 (10:55→18:33)
--- NOTE | 2019-05-06 14:38 | NUR ---
INDIVIDUALIZED OVERALL PLAN OF CARE
--- NOTE | 2019-05-06 16:42 | NUR ---
patient is confuse and forgetful, no changes noted, tolerated PT, OT, noted with episodes of agitation, constantly getting up from chair and leave, reoriented, assisted to toileting, offered snacks, not effective, prn Ativan administered, effective, stayed with patient for safety , patient is on Seroquel, no adverse reactions noted such as no dyskinesia, no excessive sedation noted. kept clean and dry, tolerated meals and meds well, all needs attended timely,
[2019-05-06 19:38] VITALS: BP 103/67
[2019-05-06] MEDS: SIMVASTATIN 10 MG TABLET PO SCH (20:43)
[2019-05-06] MEDS: MIRTAZAPINE 15 MG TABLET PO SCH (20:44)
[2019-05-07 05:37] VITALS: BP 104/57
--- NOTE | 2019-05-07 06:34 | NUR ---
Patient received sitting in wheelchair next to DRILL SHARPENER OPERATOR. AAO x1, forgetful and confused. No acute distress or SOB noted. On room air. No Complain of pain at this time. All due medication given and tolerated well. Physical assessment done. Safety measures observed. Fall precaution maintained. All needs attended promptly. Bed in low position, side rails up x2 for safety, brake and alarm on. Call light and personal belongings within reach. Continue to monitor and endorse t oncoming nurse accordingly.
[2019-05-07] MEDS: LEVOTHYROXINE SODIUM 50 MCG TABLET PO SCH (07:06)
[2019-05-07 08:10] VITALS: BP 121/51
[2019-05-07] MEDS: MEMANTINE HCL 5 MG TABLET PO SCH ×2 (09:54→17:52)
[2019-05-07] MEDS: DIVALPROEX 250 MG TABLET.DR PO SCH ×2 (09:54→17:52)
[2019-05-07] MEDS: QUETIAPINE FUMARATE 25 MG TABLET PO SCH ×3 (09:54→20:22)
--- NOTE | 2019-05-07 13:35 | NUR ---
INTERDISCIPLINARY TEAM CONFERENCE
[2019-05-07 16:00] VITALS: BP 117/52
[2019-05-07] MEDS: LORAZEPAM 0.5 MG TABLET PO PRN (17:52)
--- NOTE | 2019-05-07 19:30 | NUR ---
Received patient in bed awake A&Ox1, w/ confusion. No SOB noted, not in distress. Patient noted trying to get up and wants to go home. Reoriented and redirected patient. Safety measures observed. Call light within reach. Will continue to monitor
[2019-05-07] MEDS: SIMVASTATIN 10 MG TABLET PO SCH (20:22)
[2019-05-07] MEDS: MIRTAZAPINE 15 MG TABLET PO SCH (20:23)
[2019-05-07 20:35] VITALS: BP 139/69
[2019-05-08] MEDS: LORAZEPAM 0.5 MG TABLET PO PRN (03:27)
--- NOTE | 2019-05-08 03:30 | NUR ---
Patient woke up noted w/ episode of agitation and wants to go home, PRN Ativan given. Redirected and reoriented patient. Will continue to monitor
[2019-05-08 05:48] VITALS: BP 127/68
[2019-05-08] MEDS: LEVOTHYROXINE SODIUM 50 MCG TABLET PO SCH (06:34)
--- NOTE | 2019-05-08 06:41 | NUR ---
Patient slept intermittently. In no acute distress. No complaints of pain at this time. All due meds given. All needs attended. Will endorse accordingly
[2019-05-08 08:00] VITALS: BP 137/63
[2019-05-08] MEDS: QUETIAPINE FUMARATE 25 MG TABLET PO SCH ×2 (08:19→11:42)
[2019-05-08] MEDS: MEMANTINE HCL 5 MG TABLET PO SCH ×2 (08:19→16:03)
[2019-05-08] MEDS: DIVALPROEX 250 MG TABLET.DR PO SCH ×2 (08:19→16:02)
[2019-05-08 15:15] VITALS: BP 125/68
--- NOTE | 2019-05-08 16:03 | NUR ---
PATIENT DISCHARGED TO [facility]. D/C INSTRUCTIONS/PT TEACHINGS PROVIDED, PT FAMILY VERBALIZED UNDERSTANDING. FAMILY STATED 1700 MEDICATION DOSE TO BE GIVEN AT [facility] ONCE PATIENT. SON AT BEDSIDE, ELECTRICAL ENGINEER MEP/TRANSPORT TO [facility].
--- NOTE | 2019-05-08 16:40 | NUR ---
PATIENT'S SON SIGNED D/C PAPERS. COPY PROVIDED TO SON. SON/FAMILY VERBALIZED DC INSTRUCTIONS/TEACHINGS.
--- NOTE | 2019-05-08 16:45 | NUR ---
PATIENT LEFT THE UNIT VIA WHEELCHAIR, ACCOMPANIED BY FAMILY AND RESPIRATORY CARE FACULTY.
== END 2019-05-08 16:30 | disposition home health service (06) | DRG 71 ==
PROVIDERS: ADMIT Physical Medicine & Rehabilitation Pain Medicine; ATTEND Physical Medicine & Rehabilitation Pain Medicine
DX: G93.41 Metabolic encephalopathy (principal); E44.1 Mild protein-calorie malnutrition; E87.0 Hyperosmolality and hypernatremia; R53.1 Weakness; E03.9 Hypothyroidism, unspecified; Z90.710 Acquired absence of both cervix and uterus; E86.9 Volume depletion, unspecified; E87.6 Hypokalemia; R55 Syncope and collapse; F03.90 Unspecified dementia, unspecified severity, without behavioral disturbance, psychotic disturbance, mood disturbance, and anxiety; F32.9 Major depressive disorder, single episode, unspecified; Z91.81 History of falling; R53.81 Other malaise; Z91.018 Allergy to other foods; Z91.02 Food additives allergy status
CPT/HCPCS: A4663; J3490

== ENCOUNTER 2020-01-28 09:17 | Inpatient (IN) | payer MEDICARE, OTHER ==
[~2020-01-28] VITALS: Ht 157.5 cm; Wt 42.2 kg
[~2020-01-28 09:17] MED LIST changes: -LEVO500T2 PO; -SIMV10TA6 PO; +SIMV10TA98 PO
--- NOTE | 2020-01-28 09:50 | NUR ---
PATIENT WAS MSE BY DR BAHENA IN ROOM 03A.
[2020-01-28 10:31] LABS: *KETONES,URINE 2+ (NEGATIVE); LEUKOCYTE ESTERASE ,URINE NEGATIVE (NEGATIVE); NITRITE, URINE NEGATIVE (NEGATIVE); PH,URINE 6.5 (5.0-8.0); UGLUCOSE NEGATIVE (NEGATIVE)
[2020-01-28 10:32] LABS: BASOPHILS % (AUTO) 0.4 % (0.0-2.0); EOSINOPHILS % (AUTO) 0.1 % (0.0-7.0); HEMATOCRIT 38.8 % (31.2-41.9); HEMOGLOBIN 13.2 g/dL (10.9-14.3); LYMPHOCYTES # (AUTO) 1.3 K/uL (20.0-40.0); LYMPHOCYTES % (AUTO) 31.5 % (20.5-51.5); MEAN CORPUSCULAR HEMOGLOBIN 31.3 uug (24.7-32.8); MEAN CORPUSCULAR HGB CONC 34 g/dL (32.3-35.6); MEAN CORPUSCULAR VOLUME 91.8 fL (75.5-95.3); MONOCYTES # (AUTO) 0.5 K/uL (2.0-10.0); MONOCYTES % (AUTO) 12.3 % (0.0-11.0); NEUTROPHILS # (AUTO) 2.3 K/uL (1.8-8.9); NEUTROPHILS % (AUTO) 55.7 % (38.5-71.5); PLATELET COUNT (AUTO) 169 K/uL (179-408); RED BLOOD CELL COUNT(AUTO) 4.23 MIL/uL (3.63-4.92); WHITE BLOOD COUNT (AUTO) 4.1 K/uL (3.8-11.8)
[2020-01-28 10:37] LABS: *BLOOD, URINE TRACE (NEGATIVE)
[2020-01-28 10:39] LABS: *BILIRUBIN,URIN 1+ (NEGATIVE); *CLARITY,URINE HAZY (CLEAR); *COLOR,URINE DARK YELLOW (YELLOW)
[2020-01-28 10:43] LABS: BACTERIA,URINE NONE SEEN /HPF (NONE SEEN); MUCUS,URINE FEW /LPF (0-FEW); SQUAMOUS EPITHELIAL CELL,UR MODERATE /HPF (NONE SEEN)
[2020-01-28 10:44] LABS: ABG BASE EXCESS 5.1 mmol/L; ABG HCO3 28.9 mmol/L; ABG PCO2 39.4 mmHg (35.0-45.0); ABG PH 7.483 (7.350-7.450); ABG PO2 75.7 mmHg (75.0-100.0); ABG SITE RIGHT BRACHIAL; ABG TOTAL HEMOGLOBIN 12.7 G/dL (12.0-16.0); COHb 0.5 % (0.5-1.5); MetHb 0.3 % (0.0-1.5); O2Hb 94.9 % (94.0-97.0); VENT MODE room air
[2020-01-28] MEDS ORDERED: IV NORMAL SALINE 500 ML IV ONE (11:00)
[2020-01-28 11:02] LABS: BILIRUBIN,TOTAL 0.3 mg/dL (0.2-1.0); CREATININE 0.9 mg/dL (0.6-1.3); POTASSIUM 3.7 mmol/L (3.5-5.1); TOTAL PROTEIN, SERUM 7.2 g/dL (6.4-8.2)
[2020-01-28] MEDS ORDERED: LEVO50TA8 PO (11:35)
[2020-01-28] MEDS ORDERED: QUET25TA PO (11:35)
[2020-01-28] MEDS ORDERED: MIRT15TA7 PO (11:35)
[2020-01-28] MEDS ORDERED: LORA-258 PO (11:35)
[2020-01-28] MEDS ORDERED: SIMV10TA98 PO (11:35)
[2020-01-28] MEDS ORDERED: MEMA10TA PO (11:35)
[2020-01-28] MEDS ORDERED: DIVA-78 PO (11:35)
--- NOTE | 2020-01-28 11:35 | NUR ---
MEDICATIONS RECONCILED
[2020-01-28 11:52] LABS: THYROID STIMULATING HORMONE 1.366 mIU/mL (0.358-3.740)
--- NOTE | 2020-01-28 12:25 | NUR ---
Patient is resting comfortably in bed with eyes closed.
[2020-01-28] MEDS ORDERED: AZITHROMYCIN IV 500 MG in IV DEXTROSE 5% 250 ML IV ONE (12:30)
--- NOTE | 2020-01-28 12:34 | NUR ---
DR DALI ANGELES WAS CALLED LEFT MESSAGE WITH OFFICE WAITING FOR CALL BACK
[2020-01-28] MEDS ORDERED: AZITHROMYCIN 500MG/ D5W 250ML IVPB **ER PYXIS ONLY IV ONE (12:42)
--- NOTE | 2020-01-28 13:40 | NUR ---
DR MENDES CALLED BACK SPOKE WITH DR BAHENA ACCEPTED PATIENT FOR ADMISSION.
--- NOTE | 2020-01-28 16:37 | NUR ---
Patient admitted from ER around 330pm in stable condition via stretcher with 1 nurse. Not in distress. On oxygen via nasal cannula at 2 LPM. SPO2 96% during admission. DX: General weakness and Covid19 under telemetry. monitor tech applied to patient. skin intact. MD Turpin made aware. Medication list relayed. On mechanical soft diet. no signs /complaint of pain/discomfort noted. will continue monitor
[2020-01-28] MEDS ORDERED: ONDANSETRON 4 MG/2 ML VIAL IV PRN (16:45)
[2020-01-28] MEDS ORDERED: MAGNESIUM HYDROXIDE 30 ML LIQUID UDC PO PRN (16:45)
[2020-01-28] MEDS ORDERED: ACETAMINOPHEN 325 MG TABLET PO PRN (16:45)
[2020-01-28] MEDS ORDERED: ZOLPIDEM 5 MG TABLET PO PRN (16:45)
[2020-01-28] MEDS ORDERED: Z GUARD REMEDY PASTE 57 GM TUBE TOP PRN (16:45)
[2020-01-28] MEDS ORDERED: DIVALPROEX 500 MG TABLET.DR PO SCH (17:00)
[2020-01-28] MEDS ORDERED: LORAZEPAM 0.5 MG TABLET PO PRN (17:00)
[2020-01-28] MEDS: DIVALPROEX 250 MG TABLET.DR PO SCH (17:06)
[2020-01-28] MEDS: QUETIAPINE FUMARATE 25 MG TABLET PO SCH (17:06)
[2020-01-28 18:39] VITALS: BP 133/60
--- NOTE | 2020-01-28 20:00 | NUR ---
PATIENT RECEIVED INTO CARE, LAYING IN BED ASLEEP, RESTING COMFORTABLY. PT HAS NO S/S OF ACUTE DISTRESS OR DISCOMFORT NOTED/OBSERVED BY NURSE. ALL SAFETY, FALL, AND ISOLATION PRECAUTIONS ARE IN PLACE. CALL LIGHT AND PERSONAL ITEMS ARE WITHIN REACH AT ALL TIMES. WILL CONTINUE TO MONITOR AND ASSESS.
[2020-01-28 20:40] VITALS: BP 122/53
[2020-01-28] MEDS: SIMVASTATIN 10 MG TABLET PO SCH (21:34)
[2020-01-28] MEDS: MIRTAZAPINE 15 MG TABLET PO SCH (21:36)
[2020-01-28] MEDS: MEMANTINE HCL 10 MG TABLET PO SCH (21:36)
[2020-01-29 00:39] VITALS: BP 111/40
[2020-01-29 05:51] VITALS: BP 125/80
--- NOTE | 2020-01-29 06:00 | NUR ---
PATIENT SLEPT THROUGHOUT NIGHT WITH NO COMPLAINTS OF PAIN/DISCOMFORT VERBALIZED AND NO S/S OF ACUTE DISTRESS/DISCOMFORT NOTED/OBSERVED BY THIS NURSE. ALL PRESCRIBED MEDICATIONS PROVIDED ORDERED AND TOLERATED WELL, WITH NO ADVERSE SIDE EFFECTS VERBALIZED BY PATIENT OR NOTED/OBSERVED BY THIS NURSE. ALL SAFETY, FALL, AND ISOLATION PRECAUTIONS REMAIN IN PLACE. CALL LIGHT AND PERSONAL ITEMS REMAIN WITHIN REACH AT ALL TIMES.
[2020-01-29] MEDS ORDERED: LEVOTHYROXINE SODIUM 50 MCG TABLET PO SCH (07:00)
[2020-01-29 07:59] LABS: CREATININE 0.8 mg/dL (0.6-1.3); MAGNESIUM 2.5 mg/dL (1.8-2.4); PHOSPHOROUS 3.1 mg/dL (2.5-4.9); POTASSIUM 3.2 mmol/L (3.5-5.1)
[2020-01-29 08:00] VITALS: BP 112/76
--- NOTE | 2020-01-29 08:30 | NUR ---
Received pt in bed AOx2, on RA with no SOB or distress noted at this time. On tele SB. IV site LAC 20g H/L flushed and patent. Bed locked in lowest position withe siderails 2x up. Will continue to monitor
[2020-01-29] MEDS ORDERED: MAG HYDROX/AL HYDROX/SIMETH 30 ML LIQUID UDC PO PRN (09:00)
[2020-01-29] MEDS: QUETIAPINE FUMARATE 25 MG TABLET PO SCH ×2 (09:05→16:56)
[2020-01-29] MEDS: DIVALPROEX 250 MG TABLET.DR PO SCH ×2 (09:05→16:56)
[2020-01-29] MEDS: MEMANTINE HCL 10 MG TABLET PO SCH ×2 (09:05→20:36)
[2020-01-29 14:00] VITALS: BP 122/53
[2020-01-29] MEDS ORDERED: POTASSIUM CHLORIDE 20 MEQ POWDER PACKET PO ONE (17:00)
--- NOTE | 2020-01-29 17:45 | NUR ---
Patient stable throughout shift with no complaints or distress noted at this time. States that she's "good". Able to eat dinner and take crushed meds.
[2020-01-29 20:06] VITALS: BP 99/43
[2020-01-29] MEDS: ENOXAPARIN SODIUM 30 MG/0.3 ML DISP.SYRIN SUBCUT SCH (20:30)
[2020-01-29] MEDS: MIRTAZAPINE 15 MG TABLET PO SCH (20:36)
[2020-01-29] MEDS: SIMVASTATIN 10 MG TABLET PO SCH (20:36)
[2020-01-30 00:46] VITALS: BP 103/46
[2020-01-30 04:59] VITALS: BP 108/40
[2020-01-30 06:51] LABS: BASOPHILS % (AUTO) 0.4 % (0.0-2.0); EOSINOPHILS # (AUTO) 0.1 K/uL (0.0-0.7); EOSINOPHILS % (AUTO) 1.5 % (0.0-7.0); HEMATOCRIT 36.4 % (31.2-41.9); HEMOGLOBIN 12.3 g/dL (10.9-14.3); LYMPHOCYTES # (AUTO) 1.6 K/uL (20.0-40.0); LYMPHOCYTES % (AUTO) 37.4 % (20.5-51.5); MEAN CORPUSCULAR HEMOGLOBIN 31.1 uug (24.7-32.8); MEAN CORPUSCULAR HGB CONC 34 g/dL (32.3-35.6); MONOCYTES # (AUTO) 0.5 K/uL (2.0-10.0); MONOCYTES % (AUTO) 11.7 % (0.0-11.0); NEUTROPHILS # (AUTO) 2.1 K/uL (1.8-8.9); PLATELET COUNT (AUTO) 182 K/uL (179-408); RED BLOOD CELL COUNT(AUTO) 3.96 MIL/uL (3.63-4.92); WHITE BLOOD COUNT (AUTO) 4.2 K/uL (3.8-11.8)
--- NOTE | 2020-01-30 06:58 | NUR ---
END OF SHIFT REPORT Patient rested well in between care; no acute distress; took nourishment well with aspiration precaution; needs attended; safety maintained; continue to monitor; continue plan of care.
[2020-01-30 07:03] LABS: BILIRUBIN,TOTAL 0.2 mg/dL (0.2-1.0); CREATININE 1.2 mg/dL (0.6-1.3); MAGNESIUM 2.4 mg/dL (1.8-2.4); POTASSIUM 3.5 mmol/L (3.5-5.1)
[2020-01-30] MEDS: LEVOTHYROXINE SODIUM 50 MCG TABLET PO SCH (08:41)
[2020-01-30] MEDS: QUETIAPINE FUMARATE 25 MG TABLET PO SCH ×2 (08:41→16:34)
[2020-01-30] MEDS: MEMANTINE HCL 10 MG TABLET PO SCH ×2 (08:41→20:34)
[2020-01-30] MEDS: DIVALPROEX 250 MG TABLET.DR PO SCH ×2 (08:41→16:34)
[2020-01-30 12:06] VITALS: BP 121/51
--- NOTE | 2020-01-30 16:38 | NUR ---
Attempted to insert straight cath to obtain urine clean catch, unsuccessful. Will try again
[2020-01-30 16:40] VITALS: BP 146/56
--- NOTE | 2020-01-30 17:32 | NUR ---
Pt remained stable throughtout shift, AOx1. On RA with no SOB or distress noted at this time, saturating 97%. IV LAC 20g H/L in place, flushed and patent. Called son Xander and talked to pt. Bed locked in lowest position with siderails 2xup.
--- NOTE | 2020-01-30 19:30 | NUR ---
Received patient lying in bed. AAOX1 only. In no acute distress. No signs or symptoms of pain or SOB. O2 sat at 98% on RA. NSR on tele at 62/min. IV site on left AC intact and patent. Droplet and contact precaution observed. Safety measure initiated and call ravi within reached.
[2020-01-30 20:08] VITALS: BP 104/35
[2020-01-30] MEDS: SIMVASTATIN 10 MG TABLET PO SCH (20:33)
[2020-01-30] MEDS: MIRTAZAPINE 15 MG TABLET PO SCH (20:33)
[2020-01-30] MEDS: ENOXAPARIN SODIUM 30 MG/0.3 ML DISP.SYRIN SUBCUT SCH (20:33)
[2020-01-31 00:08] VITALS: BP 146/67
[2020-01-31 04:17] VITALS: BP 111/44
[2020-01-31 05:31] LABS: *BLOOD, URINE 3+ (NEGATIVE); *CLARITY,URINE CLOUDY (CLEAR); *COLOR,URINE AMBER (YELLOW); *KETONES,URINE 3+ (NEGATIVE); LEUKOCYTE ESTERASE ,URINE TRACE (NEGATIVE); NITRITE, URINE NEGATIVE (NEGATIVE); PH,URINE 6.5 (5.0-8.0); UGLUCOSE NEGATIVE (NEGATIVE)
[2020-01-31 05:50] LABS: *BILIRUBIN,URIN 1+ (NEGATIVE)
[2020-01-31 05:51] LABS: BACTERIA,URINE NONE SEEN /HPF (NONE SEEN); RBC,URINE TNTC /HPF (0-3)
[2020-01-31 05:52] LABS: SQUAMOUS EPITHELIAL CELL,UR FEW /HPF (NONE SEEN)
--- NOTE | 2020-01-31 06:00 | NUR ---
Patient slept well last night. In no acute distress. No signs or symptoms of pain or SOB. IV site on left AC remains intact and patent. Needs anticipated to and met. Droplet and contact precaution maintained. Safety measure maintained and call ravi within reached.
[2020-01-31 06:01] LABS: *CREATININE,URINE 248.2 mg/dL (30-125); *URINE TOTAL PROTEIN RANDOM 122.3 mg/dL (<150/24HR)
[2020-01-31 06:51] LABS: ALANINE AMINOTRANSFERASE < 6 U/L (14-59); ALKALINE PHOSPHATASE 58 U/L (50-136); ASPARTATE AMINOTRANSFERASE 15 U/L (15-37); BILIRUBIN,TOTAL 0.2 mg/dL (0.2-1.0); CARBON DIOXIDE 32 mmol/L (21-32); CHLORIDE 112 mmol/L (98-107); CREATINE KINASE, TOTAL 27 U/L (26-192); CREATININE 0.9 mg/dL (0.6-1.3); GLUCOSE 72 mg/dL (74-106); LACTATE DEHYDROGENASE 181 U/L (81-234); MAGNESIUM 2.6 mg/dL (1.8-2.4); PHOSPHOROUS 3.2 mg/dL (2.5-4.9); POTASSIUM 3.5 mmol/L (3.5-5.1); TOTAL PROTEIN, SERUM 6.4 g/dL (6.4-8.2); UREA NITROGEN, BLOOD 24 mg/dL (7-18)
[2020-01-31] MEDS: MEMANTINE HCL 10 MG TABLET PO SCH ×2 (08:44→20:36)
[2020-01-31] MEDS: DIVALPROEX 250 MG TABLET.DR PO SCH ×2 (08:45→20:35)
[2020-01-31] MEDS: LEVOTHYROXINE SODIUM 50 MCG TABLET PO SCH (08:45)
[2020-01-31] MEDS: QUETIAPINE FUMARATE 25 MG TABLET PO SCH (08:45)
--- NOTE | 2020-01-31 09:00 | NUR ---
PATIENT IS IN BED CONFUSED DISORIENTED ALL NEEDS ANTICIPATED AND SATISFIED. MAX ASSIST FOR ALL ADL TURNED AND REPOSITIONED Q2H TELE SR ON ROOM AIR WITH NO RESP DISTRESS AT THIS TIME MADE COMFORTABLE WILL CONTINUE TO OBSERVE.
--- NOTE | 2020-01-31 09:52 | NUR ---
DR JEFFRIES HERE TO SEE AND EXAMINE PATIENT WITH NO NEW ORDERS AT THIS AWARE THAT WE ARE STILL WAITING FOR PATIENTS CONSERVATOR TO RETURN CALL FOR CONSCENT FOR THE CTA Addendum: 01/31/20 at 1005 by ROCK RG RN ERROR IN CHARTING WRONG PATIENT
[2020-01-31 09:55] LABS: BASOPHILS % (AUTO) 1.1 % (0.0-2.0); EOSINOPHILS # (AUTO) 0.1 K/uL (0.0-0.7); EOSINOPHILS % (AUTO) 1.8 % (0.0-7.0); HEMATOCRIT 36.8 % (31.2-41.9); HEMOGLOBIN 12.5 g/dL (10.9-14.3); LYMPHOCYTES # (AUTO) 1.4 K/uL (20.0-40.0); LYMPHOCYTES % (AUTO) 32.1 % (20.5-51.5); MEAN CORPUSCULAR HEMOGLOBIN 31.2 uug (24.7-32.8); MEAN CORPUSCULAR HGB CONC 34 g/dL (32.3-35.6); MEAN CORPUSCULAR VOLUME 92.1 fL (75.5-95.3); MONOCYTES # (AUTO) 0.4 K/uL (2.0-10.0); MONOCYTES % (AUTO) 9.2 % (0.0-11.0); NEUTROPHILS # (AUTO) 2.5 K/uL (1.8-8.9); NEUTROPHILS % (AUTO) 55.8 % (38.5-71.5); PLATELET COUNT (AUTO) 199 K/uL (179-408); WHITE BLOOD COUNT (AUTO) 4.5 K/uL (3.8-11.8)
--- NOTE | 2020-01-31 10:00 | NUR ---
RECEIVED REPORT FROM THE LAB PATIENT HAS GRAM POSITIVE PLUS COCCI IN CLUSTERS IN THE AEROBIC BOTTLE DR JENNIFER ARRIOLA HERE AND AWARE WITH NO NEW ORDERS AT THIS TIME.
[2020-01-31 12:00] VITALS: BP 113/51
--- NOTE | 2020-01-31 12:48 | NUR ---
DR VELASQUEZ HERE SEEN PATIENT WITH NEW ORDERS AND NOTED
[2020-01-31 15:43] VITALS: BP 121/52
--- NOTE | 2020-01-31 18:00 | NUR ---
SPOON FED ATE 50 PERCENT ALL NEEDS ANTICIPATED AND SATISFIED TURNED AND REPOSITIONED NOT IN DISTRESS AT THIS TIME.
--- NOTE | 2020-01-31 19:30 | NUR ---
Received patient lying in bed. AAOX1 only. Calm and pleasantly confused. In no acute distress. No signs or symptoms of pain or SOB. NSR on tele at 82/min. IV site on left AC intact and patent. Droplet and contact precaution observed. Safety measure initiated and call ravi within reached.
[2020-01-31] MEDS: MIRTAZAPINE 15 MG TABLET PO SCH (20:36)
[2020-01-31] MEDS: ENOXAPARIN SODIUM 30 MG/0.3 ML DISP.SYRIN SUBCUT SCH (20:36)
[2020-01-31] MEDS: SIMVASTATIN 10 MG TABLET PO SCH (20:36)
[2020-01-31 22:00] VITALS: BP 116/46
[2020-02-01] VITALS: BP 139/49
--- NOTE | 2020-02-01 06:23 | NUR ---
Slept well last night. In no acute distress. No signs or symptoms of pain or SOB. Sinus destiny on tele at 57/min. IV site on left AC remains intact and patent. Droplet and contact precaution maintained. Safety measure maintained and call ravi within reached.
--- NOTE | 2020-02-01 07:01 | NUR ---
Noted IV was dislodged/pulled out. Started new IV on left wrist #22G.
--- NOTE | 2020-02-01 08:00 | NUR ---
PATIENT IS AWAKE ALERT TO SELF WITH CONFUSSION AND DISORIENTATION ALL NEEDS ANTICIPATED AND SATISFIED.REMAIN ON COVID 19 ISOLATION ORDERED.REPOSITIONED MADE COMFORTABLE ASSISTED WITH MEALS WITH FAIR APPETITE MADE COMFORTABLE WILL CONTINUE TO OBSERVE.
[2020-02-01] MEDS: MEMANTINE HCL 10 MG TABLET PO SCH ×2 (09:08→21:39)
[2020-02-01] MEDS: LEVOTHYROXINE SODIUM 50 MCG TABLET PO SCH (09:08)
[2020-02-01 09:18] VITALS: BP 125/53
--- NOTE | 2020-02-01 11:00 | NUR ---
DR JEFFRIES HERE TO SEE PATIENT WITH NEW ORDERS AND NOTED
--- NOTE | 2020-02-01 12:08 | NUR ---
DR CRONIN HERE TO SEE PATIENT REMINDED HIM THAT DR ARRIOLA WAS NOTIFIED YESTERDAY OF THE POSITIVE BLOOD CULTURE AND HE SAW PATIENT WITH NEW ORDERS AND NOTED.
[2020-02-01] MEDS: POTASSIUM CHLORIDE 10 MEQ in IV D5 1/2 NS 1000 ML 1,000 ML IV PRN (12:41)
--- NOTE | 2020-02-01 16:05 | NUR ---
ALERT TO SELF WITH CONFUSSION AND DISORIENTATION UNABLE TO MAKE NEEDS KNOWN ALL NEEDS ANTICIPATED AND SATISFIED MAX ASSIST FOR ALL ADL TURNED AND REPOSITIONED Q2H REMAIN ON IVF ORDERED WITH NO S/S OF INFILTERATION AT THIS TIME TURNED AND REPOSITIONED Q2H HEELS FLOATED MADE COMFORTABLE WILL CONTINUE TO OBSERVE.
--- NOTE | 2020-02-01 16:37 | NUR ---
CALL RECEIVED FROM DR HARVEY INQUIRES ON THE PATIENT WITH NO NEW ORDERS AT HIS TIME
[2020-02-01 18:10] VITALS: BP 122/56
[2020-02-01 20:00] VITALS: BP 127/52
[2020-02-01] MEDS ORDERED: QUETIAPINE FUMARATE 25 MG TABLET PO SCH (21:00)
[2020-02-01] MEDS ORDERED: VANCOMYCIN IV 500 MG in IV DEXTROSE 5% 100 ML IV SCH (21:00)
[2020-02-01] MEDS: ENOXAPARIN SODIUM 30 MG/0.3 ML DISP.SYRIN SUBCUT SCH (21:37)
[2020-02-01] MEDS: DIVALPROEX 250 MG TABLET.DR PO SCH (21:39)
[2020-02-01] MEDS: SIMVASTATIN 10 MG TABLET PO SCH (21:39)
[2020-02-01] MEDS: MIRTAZAPINE 15 MG TABLET PO SCH (21:39)
[2020-02-01] MEDS: QUETIAPINE FUMARATE 25 MG TABLET PO SCH (21:39)
[2020-02-02] VITALS: BP 122/58
[2020-02-02] MEDS: POTASSIUM CHLORIDE 10 MEQ in IV D5 1/2 NS 1000 ML 1,000 ML IV PRN ×2 (01:53→15:22)
[2020-02-02 04:00] VITALS: BP 137/48
--- NOTE | 2020-02-02 06:28 | NUR ---
Patient slept well. No SOB. O2 sat 98% on RA. SR on Tele monitor. IV on L wrist 22g intact and patent w/ IVF infusing. All needs attended. Will endorse accordingly
[2020-02-02 06:31] LABS: BASOPHILS % (AUTO) 0.3 % (0.0-2.0); EOSINOPHILS # (AUTO) 0.1 K/uL (0.0-0.7); EOSINOPHILS % (AUTO) 0.9 % (0.0-7.0); HEMATOCRIT 33.7 % (31.2-41.9); HEMOGLOBIN 11.5 g/dL (10.9-14.3); LYMPHOCYTES # (AUTO) 1.6 K/uL (20.0-40.0); LYMPHOCYTES % (AUTO) 25.8 % (20.5-51.5); MEAN CORPUSCULAR HEMOGLOBIN 31.4 uug (24.7-32.8); MEAN CORPUSCULAR HGB CONC 34 g/dL (32.3-35.6); MEAN CORPUSCULAR VOLUME 92.2 fL (75.5-95.3); MONOCYTES # (AUTO) 0.7 K/uL (2.0-10.0); MONOCYTES % (AUTO) 11.2 % (0.0-11.0); NEUTROPHILS # (AUTO) 3.8 K/uL (1.8-8.9); NEUTROPHILS % (AUTO) 61.8 % (38.5-71.5); PLATELET COUNT (AUTO) 200 K/uL (179-408); RED BLOOD CELL COUNT(AUTO) 3.66 MIL/uL (3.63-4.92); WHITE BLOOD COUNT (AUTO) 6.1 K/uL (3.8-11.8)
[2020-02-02 06:57] LABS: BILIRUBIN,TOTAL 0.2 mg/dL (0.2-1.0); CREATININE 0.8 mg/dL (0.6-1.3); MAGNESIUM 2.1 mg/dL (1.8-2.4); PHOSPHOROUS 2.2 mg/dL (2.5-4.9); POTASSIUM 3.5 mmol/L (3.5-5.1); TOTAL PROTEIN, SERUM 5.8 g/dL (6.4-8.2)
--- NOTE | 2020-02-02 07:54 | NUR ---
PATIENT IS ALERT TO SELF WITH CONFUSSION AND DISORIENTATION TURNED AND REPOSITIONED FOR COMFORT NO RESPIRATORY DISTRESS AFEBRILE REMAIN ON IVF ORDERED WITH NO S/S OF INFILTERATION AT THIS TIME MADE COMFORTABLE WILL CONTINUE TO OBSERVE.
[2020-02-02 08:22] VITALS: BP 119/48
[2020-02-02] MEDS: MEMANTINE HCL 10 MG TABLET PO SCH ×2 (08:25→20:29)
[2020-02-02] MEDS: QUETIAPINE FUMARATE 25 MG TABLET PO SCH ×2 (08:25→20:30)
[2020-02-02] MEDS: LEVOTHYROXINE SODIUM 50 MCG TABLET PO SCH (08:25)
--- NOTE | 2020-02-02 12:39 | NUR ---
DR ARRIOLA HERE SEEN PATIENT WITH NO NEW ORDERS AT THIS TIME
[2020-02-02 13:07] LABS: A/G RATIO 0.8 (0.7-1.7); ALBUMIN 2.6 g/dL (2.9-4.4); ALPHA-1-GLOBULIN 0.3 g/dL (0.0-0.4); ALPHA-2-GLOBULIN 0.8 g/dL (0.4-1.0); BETA GLOBULIN 1.1 g/dL (0.7-1.3); GAMMA GLOBULIN 1.2 g/dL (0.4-1.8); GLOBULIN, TOTAL 3.3 g/dL (2.2-3.9); M-SPIKE Not Observed g/dL (Not Observed)
[2020-02-02] MEDS ORDERED: NEUTRA PHOS PACKET PO ONE (15:30)
[2020-02-02 15:58] VITALS: BP 138/50
--- NOTE | 2020-02-02 17:30 | NUR ---
POTASSIUM REPLACEMENT GIVEN ORDERED NOT IN DISTRESS AT THIS TIME
--- NOTE | 2020-02-02 18:00 | NUR ---
AWAKE ALERT TO SELF MORE TALKATIVE TODAY MADE COMFORTABLE WILL CONTINUE TO OBSERVE.
[2020-02-02 20:00] VITALS: BP 129/58
[2020-02-02] MEDS: DIVALPROEX 250 MG TABLET.DR PO SCH (20:29)
[2020-02-02] MEDS: SIMVASTATIN 10 MG TABLET PO SCH (20:30)
[2020-02-02] MEDS: MIRTAZAPINE 15 MG TABLET PO SCH (20:30)
[2020-02-02] MEDS: ENOXAPARIN SODIUM 30 MG/0.3 ML DISP.SYRIN SUBCUT SCH (22:03)
[2020-02-03] VITALS: BP 117/45
[2020-02-03 04:00] VITALS: BP 114/46
[2020-02-03] MEDS: POTASSIUM CHLORIDE 10 MEQ in IV D5 1/2 NS 1000 ML 1,000 ML IV PRN ×2 (04:50→21:11)
--- NOTE | 2020-02-03 06:55 | NUR ---
END OF SHIFT REPORT PAtient rested well in between care; no acute distress; safety maintained; bed bath rendered; continue to monitor; continue plan of care.
[2020-02-03 07:26] LABS: CREATININE 0.8 mg/dL (0.6-1.3); PHOSPHOROUS 1.6 mg/dL (2.5-4.9); POTASSIUM 3.5 mmol/L (3.5-5.1)
[2020-02-03] MEDS: LEVOTHYROXINE SODIUM 50 MCG TABLET PO SCH (08:31)
[2020-02-03] MEDS: MEMANTINE HCL 10 MG TABLET PO SCH ×2 (08:31→21:04)
[2020-02-03] MEDS: QUETIAPINE FUMARATE 25 MG TABLET PO SCH ×2 (08:32→21:04)
[2020-02-03] MEDS ORDERED: POTASSIUM PHOSPHATE MM 7.5 MMOL in IV NORMAL SALINE 97.5 ML IV ONE (11:15)
[2020-02-03 16:00] VITALS: BP 119/56
--- NOTE | 2020-02-03 18:50 | NUR ---
PATIENTS CALM AND COMFORTABLE WITH NO SIGNS ; PATIENT MEDICATION COMPLIANT; PATIENT WITH STABLE VITAL SIGNS. REPORT GIVEN TO ONCOMING NURSE.
[2020-02-03 20:00] VITALS: BP 122/60
--- NOTE | 2020-02-03 20:00 | NUR ---
Patient received into care, laying in bed, resting comfortably. Patient is awake, alert, and oriented x2 and has no complaints of pain or discomfort at this time. IV 1/2 NS KCL running @ 70mL/hr via left wrist IV catheter. All safety, fall, isolation, and allergy precautions are in place. Call light and personal items are within reach at all times. Will continue to monitor and assess.
[2020-02-03] MEDS: MIRTAZAPINE 15 MG TABLET PO SCH (21:03)
[2020-02-03] MEDS: DIVALPROEX 250 MG TABLET.DR PO SCH (21:03)
[2020-02-03] MEDS: SIMVASTATIN 10 MG TABLET PO SCH (21:04)
[2020-02-03] MEDS: ENOXAPARIN SODIUM 30 MG/0.3 ML DISP.SYRIN SUBCUT SCH (21:11)
[2020-02-04 04:17] VITALS: BP 120/51
--- NOTE | 2020-02-04 05:58 | NUR ---
LEFT WRIST 22G IV CATH LEAKING SO THIS NURSE MOVED IV SITE TO RIGHT FOREARM 22G, WHICH IS PATENT AND INTACT AND RUNNING D5 KcL @ 70mL/hr.
--- NOTE | 2020-02-04 06:00 | NUR ---
PATIENT SLEPT INTERMITTENTLY THROUGHOUT NIGHT WITH NO COMPLAINTS OF PAIN OR ACUTE DISTRESS VERBALIZED. ALL PRESCRIBED MEDICATIONS PROVIDED ORDERED AND TOLERATED WELL, WITH NO ADVERSE SIDE EFFECTS NOTED/OBSERVED BY NURSE OR VERBALIZED BY PATIENT. ALL PATIENT NEEDS MET PROMPTLY AND PATIENT IS WARM, DRY, AND COMFORTABLE. IV CATH SITE WAS MOVED FROM LEFT WRIST TO RIGHT FOREARM, 20G, AND IS PATENT/INTACT AND RUNNING D5 1/2NS KCL AT 70mL/HR. ALL SAFETY, FALL, ALLERGY, AND ISOLATION PRECAUTIONS REMAIN IN PLACE. CALL LIGHT AND PERSONAL ITEMS REMAIN WITHIN REACH AT ALL TIMES.
--- NOTE | 2020-02-04 08:00 | NUR ---
received pt. resting in bed alert oriented to self. pt. appears in no acute distress. pt. on room air saturating well. IV in R Forearm 22 gauge intact patent running prescribed fluid. Pt. on tele monitor sinus rhythm HR 65. Safety measures in place. call light within reach. will continue to monitor pt.
[2020-02-04] MEDS: MEMANTINE HCL 10 MG TABLET PO SCH ×2 (08:26→21:23)
[2020-02-04] MEDS: QUETIAPINE FUMARATE 25 MG TABLET PO SCH ×2 (08:26→21:24)
[2020-02-04] MEDS: LEVOTHYROXINE SODIUM 50 MCG TABLET PO SCH (08:28)
[2020-02-04 12:00] VITALS: BP 146/34
[2020-02-04] MEDS: POTASSIUM CHLORIDE 10 MEQ in IV D5 1/2 NS 1000 ML 1,000 ML IV PRN (19:20)
[2020-02-04 21:18] VITALS: BP 119/65
[2020-02-04] MEDS: MIRTAZAPINE 15 MG TABLET PO SCH (21:23)
[2020-02-04] MEDS: DIVALPROEX 250 MG TABLET.DR PO SCH (21:23)
[2020-02-04] MEDS: SIMVASTATIN 10 MG TABLET PO SCH (21:24)
[2020-02-04] MEDS: ENOXAPARIN SODIUM 30 MG/0.3 ML DISP.SYRIN SUBCUT SCH (21:26)
--- NOTE | 2020-02-04 23:30 | NUR ---
RECEIVED PATIENT IN BED, ALERT AND VERBALLY RESPONSIVE. PATIENT IS PLEASANT WITH EPISODES OF CONFUSION. RESPIRATIONS ARE EVEN AND UNLABORED, TOLERATING ROOM AIR. NO COMPLAINTS OF PAIN. KEPT PATIENT WARM, DRY, CLEAN, AND COMFORTABLE. RECEIVED ALL DUE MEDICATIONS, TOLERATED WELL. FALL AND SAFETY PRECAUTIONS OBSERVED. WILL ANTICIPATE AND ATTEND TO PATIENT'S NEEDS.
[2020-02-05 00:48] VITALS: BP 143/71
[2020-02-05 04:38] VITALS: BP 129/55
[2020-02-05 06:34] LABS: BASOPHILS % (AUTO) 0.8 % (0.0-2.0); EOSINOPHILS # (AUTO) 0.1 K/uL (0.0-0.7); EOSINOPHILS % (AUTO) 1.2 % (0.0-7.0); HEMATOCRIT 30.4 % (31.2-41.9); HEMOGLOBIN 9.6 g/dL (10.9-14.3); LYMPHOCYTES # (AUTO) 1.6 K/uL (20.0-40.0); LYMPHOCYTES % (AUTO) 25.4 % (20.5-51.5); MEAN CORPUSCULAR HEMOGLOBIN 31.3 uug (24.7-32.8); MEAN CORPUSCULAR HGB CONC 32 g/dL (32.3-35.6); MEAN CORPUSCULAR VOLUME 98.9 fL (75.5-95.3); MONOCYTES # (AUTO) 0.5 K/uL (2.0-10.0); MONOCYTES % (AUTO) 7.6 % (0.0-11.0); PLATELET COUNT (AUTO) 215 K/uL (179-408); RED BLOOD CELL COUNT(AUTO) 3.08 MIL/uL (3.63-4.92); WHITE BLOOD COUNT (AUTO) 6.1 K/uL (3.8-11.8)
--- NOTE | 2020-02-05 07:20 | NUR ---
PATIENT IS IN BED, ASLEEP AT THIS TIME. PATIENT HAD INTERMITTENT SLEEP THROUGH THE NIGHT. NO EPISODES OF COUGHING OR RESPIRATORY SYMPTOMS. AFEBRILE THROUGH THE NIGHT. NO COMPLAINTS OF PAIN. FALL AND SAFETY PRECAUTIONS OBSERVED. KEPT PATIENT CLEAN, WARM, AND COMFORTABLE.
[2020-02-05] MEDS: QUETIAPINE FUMARATE 25 MG TABLET PO SCH ×2 (08:45→21:41)
[2020-02-05] MEDS: LEVOTHYROXINE SODIUM 50 MCG TABLET PO SCH (08:46)
[2020-02-05] MEDS: MEMANTINE HCL 10 MG TABLET PO SCH ×2 (08:46→21:40)
[2020-02-05] MEDS: POTASSIUM CHLORIDE 10 MEQ in IV D5 1/2 NS 1000 ML 1,000 ML IV PRN (11:01)
[2020-02-05 12:01] VITALS: BP 139/57
[2020-02-05 15:20] LABS: CREATININE 0.7 mg/dL (0.6-1.3); MAGNESIUM 2.1 mg/dL (1.8-2.4); PHOSPHOROUS 3.6 mg/dL (2.5-4.9); POTASSIUM 4.1 mmol/L (3.5-5.1)
[2020-02-05 15:22] VITALS: BP 155/82
--- NOTE | 2020-02-05 18:31 | NUR ---
Patient remains alert, oriented to self not in any form of distress, on room air during the shift. No complain of any pain or discomfort. Due medications administered and tolerated well, patient was compliant with care. Needs attended to promptly. Peripheral IV line in place and patent with no signs of infections. Sinus rhythm on tele monitor. Call light and frequently used items placed within patient's reach. Safety measures maintained. Will endorse accordingly to tool machine set up operator nurse.
[2020-02-05 19:30] VITALS: BP 134/50
--- NOTE | 2020-02-05 20:00 | NUR ---
Patient received into care, resting comfortably, watching television, alert/oriented x2, with no complaints of pain or discomfort at this time. All safety, isolation, allergy, and aspirations precautions are in place. Call light and personal items are within reach at all times. Will continue to monitor and assess.
[2020-02-05] MEDS: ENOXAPARIN SODIUM 30 MG/0.3 ML DISP.SYRIN SUBCUT SCH (21:38)
[2020-02-05] MEDS: MIRTAZAPINE 15 MG TABLET PO SCH (21:40)
[2020-02-05] MEDS: SIMVASTATIN 10 MG TABLET PO SCH (21:41)
[2020-02-05] MEDS: DIVALPROEX 250 MG TABLET.DR PO SCH (21:41)
[2020-02-06] VITALS: BP 136/56
[2020-02-06] MEDS: POTASSIUM CHLORIDE 10 MEQ in IV D5 1/2 NS 1000 ML 1,000 ML IV PRN ×2 (01:04→15:50)
[2020-02-06 04:43] VITALS: BP 130/40
--- NOTE | 2020-02-06 06:00 | NUR ---
PATIENT SLEPT WELL THROUGHOUT NIGHT WITH NO COMPLAINTS OF PAIN OR DISCOMFORT VERBALIZED AND NO S/S OF ACUTE DISTRESS/DISCOMFORT NOTED/OBSERVED BY THIS NURSE. ALL PRESCRIBED MEDICATIONS WERE PROVIDED ORDER AND TOLERATED WELL WITH NO ADVERSE SIDE EFFECTS NOTED/OBSERVED BY THIS NURSE OR VERBALIZED BY PATIENT. ALL SAFETY, ALLERGY, FALL, ASPIRATION, AND ISOLATION PRECAUTIONS REMAIN IN PLACE. CALL LIGHT AND PERSONAL ITEMS REMAIN WITHIN REACH.
[2020-02-06 08:00] VITALS: BP 133/56
[2020-02-06] MEDS: MEMANTINE HCL 10 MG TABLET PO SCH ×2 (10:10→21:37)
[2020-02-06] MEDS: QUETIAPINE FUMARATE 25 MG TABLET PO SCH ×2 (10:10→21:36)
[2020-02-06] MEDS: LEVOTHYROXINE SODIUM 50 MCG TABLET PO SCH (10:10)
[2020-02-06 15:18] VITALS: BP 110/50
[2020-02-06 20:00] VITALS: BP 148/59
--- NOTE | 2020-02-06 20:00 | NUR ---
Received patient awake. Patient shows no signs or symptoms of distress at this time. Vital signs stable. NSR on tele monitor. Bed set to lowest position. Call light within reach. Side rails x2 are up. Will continue to monitor patient.
[2020-02-06] MEDS: SIMVASTATIN 10 MG TABLET PO SCH (21:36)
[2020-02-06] MEDS: DIVALPROEX 250 MG TABLET.DR PO SCH (21:36)
[2020-02-06] MEDS: ENOXAPARIN SODIUM 30 MG/0.3 ML DISP.SYRIN SUBCUT SCH (21:36)
[2020-02-06] MEDS: MIRTAZAPINE 15 MG TABLET PO SCH (21:37)
[2020-02-07] VITALS: BP 138/53
[2020-02-07 04:00] VITALS: BP 149/46
[2020-02-07] MEDS: POTASSIUM CHLORIDE 10 MEQ in IV D5 1/2 NS 1000 ML 1,000 ML IV PRN (05:37)
--- NOTE | 2020-02-07 06:56 | NUR ---
Patient shows no signs or symptoms of distress at this time. Vital signs stable throughout the shift. Patient was afebrile and did not have any shortness of breath throughout the shift. Sinus rhythm / sinus destiny throughout the shift. Will endorse patient to day shift nurse in stable condition.
--- NOTE | 2020-02-07 08:00 | NUR ---
received pt. resting in bed alert oriented to self. pt. appears in no acute distress. pt. on room air saturating well. IV in R Forearm 22 gauge intact patent running prescribed fluid. Pt. on tele monitor sinus rhythm. Safety measures in place. call light within reach. will continue to monitor pt.
[2020-02-07] MEDS: QUETIAPINE FUMARATE 25 MG TABLET PO SCH (08:43)
[2020-02-07] MEDS: LEVOTHYROXINE SODIUM 50 MCG TABLET PO SCH (08:43)
[2020-02-07] MEDS: MEMANTINE HCL 10 MG TABLET PO SCH (08:43)
[2020-02-07 12:00] VITALS: BP 139/50
--- NOTE | 2020-02-07 13:53 | NUR ---
received from lab pt's second covid test is positive. endorsed to charger tester. Instructed to get copy of results to include in discharge paperwork for facility.
[2020-02-07 16:00] VITALS: BP 159/75
--- NOTE | 2020-02-07 17:30 | NUR ---
Pt left back to [facility] living. IV removed. ID band removed. All discharge paperwork with pt. Pt. in stable condition. pt. did not have any belongings or belonging list. son brought her clothes to leave hospital with.
== END 2020-02-07 17:30 | disposition home health service (06) | DRG 177 ==
LOC: ER 09:17 → TELE 14:24 → MED 02-07 13:21
PROVIDERS: ADMIT Internal Medicine; ATTEND Internal Medicine Nephrology
DX: U07.1 COVID-19 (principal); G93.41 Metabolic encephalopathy; Z68.1 Body mass index [BMI] 19.9 or less, adult; N17.9 Acute kidney failure, unspecified; E44.0 Moderate protein-calorie malnutrition; R62.7 Adult failure to thrive; E03.9 Hypothyroidism, unspecified; E78.5 Hyperlipidemia, unspecified; F03.90 Unspecified dementia, unspecified severity, without behavioral disturbance, psychotic disturbance, mood disturbance, and anxiety; Z79.899 Other long term (current) drug therapy; Z90.710 Acquired absence of both cervix and uterus; E86.0 Dehydration; R79.89 Other specified abnormal findings of blood chemistry; F32.9 Major depressive disorder, single episode, unspecified
CPT/HCPCS: 36415; 36600; 70030-TC; 71045; 80164; 83605; 83615; 83735; 83970; 84100; 84155; 84156; 84165; 84300; 84443; 85025; 85651; 85730; 86140; 87040; 87086; 87400; 93005; A4663; C1758; G0378; J0456; J1650; J3480; J3490; J7040; U0003-CS